=== PATIENT | female | born 1975 | race Caucasian/White ===

== ENCOUNTER 2017-04-09 13:35 | Observation (INO) | payer BC ==
[2017-04-09] MEDS ORDERED: Aspirin Low Dose CHEW TAB* 81 MG PO ONE (14:44)
[2017-04-09] MEDS ORDERED: Nitroglycerin TAB 0.4 MG* 0.4 MG TAB SL ONE (14:51)
--- NOTE | 2017-04-09 15:30 | RAD ---
HISTORY: Chest pain COMPARISONS: February 16, 2004 VIEWS:1: Single frontal portable view of the chest at 3:15 PM FINDINGS: LINES AND TUBES: None. CARDIOMEDIASTINAL SILHOUETTE: The cardiomediastinal silhouette is normal for portable technique. PLEURA: The costophrenic angles are sharp. No pleural abnormalities are noted. LUNG PARENCHYMA: The lungs are clear. ABDOMEN: The upper abdomen is clear. There is no subphrenic gas. BONES AND SOFT TISSUES: No bone or soft tissue abnormalities are noted. IMPRESSION: NO ACTIVE CARDIOPULMONARY DISEASE.
[2017-04-09 15:36] LABS: Hematocrit 41 % (35-47); Hemoglobin 13.4 g/dl (12.0-16.0); Mean Corpuscular HGB Conc 33 g/dl (31-36); Mean Corpuscular Hemoglobin 31 pg (27-31); Mean Corpuscular Volume 95 fL (80-97); Mean Platelet Volume 9 um3 (7.4-10.4); Red Cell Distribution Width 13 % (10.5-15); White Blood Count 6.2 10^3/ul (3.5-10.8)
[2017-04-09 15:51] LABS: ALT 12 U/L (7-52); AST 15 U/L (13-39); Albumin 3.9 g/dL (3.2-5.2); Alkaline Phosphatase 53 U/L (34-104); Anion Gap 4 mmol/L (2-11); BUN/Creatinine Ratio 9.7 (8-20); Blood Urea Nitrogen 7 mg/dL (6-24); CO2 Carbon Dioxide 26 mmol/L (22-32); Calcium 8.8 mg/dL (8.6-10.3); Chloride 108 mmol/L (101-111); Creatine Kinase 57 U/L (10-223); EGFR African American 114.2 (>60); EGFR Non-African American 88.8 (>60); Globulin 2.6 g/dL (2-4); Glucose 84 mg/dL (70-100); Potassium 3.3 mmol/L (3.5-5.0); Sodium 138 mmol/L (133-145); Total Protein 6.5 g/dL (6.4-8.9)
[2017-04-09] MEDS ORDERED: Morphine INJ* 2 MG/ML 1 ML SYRINGE IV PRN (15:51)
[2017-04-09] MEDS ORDERED: Acetaminophen TAB* 325 MG PO PRN (15:51)
[2017-04-09] MEDS ORDERED: PROCHLORPERAZINE INJ 5 MG/ML 2 ML VIAL IV PRN (15:51)
[2017-04-09 16:06] LABS: T4 7.84 mcg/mL (6.09-12.23)
[2017-04-09 16:07] LABS: TSH (Thyroid Stimulating Horm) 0.81 mcIU/mL (0.34-5.60)
[2017-04-09] MEDS ORDERED: Iohexol 350* (CONTRAST) 500 ML MDV IV ONE (16:08)
[2017-04-09] MEDS ORDERED: Potassium Chlor TAB* 20 MEQ TAB.ER PO ONE (16:29)
[2017-04-09] MEDS ORDERED: NS 0.9% 1000 ML* 1,000 ML BOLUS SCH (16:30)
--- NOTE | 2017-04-09 16:31 | RAD ---
Indication: Chest pain, pulmonary embolus. Contrast: Administered 60.9 ml of OMNIPAQUE 350 mgi/ml CTA of the chest was performed after IV contrast administration. Coronal and sagittal reconstructed images were obtained. The pulmonary arterial tree is well opacified. There are no filling defects present to suggest pulmonary embolus. The trachea and major bronchi appear patent. The lung jeter demonstrate no pleural fluid, nodules or masses. Heart is of normal size without evidence of pericardial effusion. No alveolar consolidation is noted. Visualized abdominal organs are unremarkable. IMPRESSION: No evidence of pulmonary embolus is noted.
[2017-04-09] MEDS ORDERED: Enoxaparin(*) 60 MG/0.6 ML SYR SUBCUT ONE (16:34)
[2017-04-09] MEDS ORDERED: VALACYCLOVIR 1 GM PO SCH (17:00)
[2017-04-09 17:44] LABS: Urine Bilirubin Negative (Negative); Urine Glucose Negative (Negative); Urine Nitrite Negative (Negative)
[2017-04-09] MEDS: NS 0.9% 1000 ML* 1,000 ML IV SCH (18:01)
--- NOTE | 2017-04-09 20:14 | HP ---
CC: Dr. Rose* HISTORY AND PHYSICAL: DATE OF ADMISSION: 04/09/17 TIME OF EVALUATION: 3:15 p.m. PRIMARY CARE PROVIDER: Dr. Rose. CHIEF COMPLAINT: Chest pain. HISTORY OF PRESENT ILLNESS: Ms. Encoh Patterson is a 42-year-old lady with a past medical history of ADHD, seasonal allergies, who presented to the emergency room with complaint of chest pain. She states she was in her usual state of health until a week ago, when she started having some shortness of breath and chest heaviness when going upstairs. She works at [employer] and she usually goes up 4 flights of stairs with no problem, but last week, she started to have the above-described symptoms. Last night, she had a very busy day and she went to bed around 11 p.m. and she had sudden onset of left-sided chest pain that she describes as sharp that also has the sensation of "elephant sitting on her chest." She states the episode was brief and she stated the pain lasted 10 to 15 seconds and resolved by itself and she was able to sleep. Today, she came to work and she had this episode again, not related to exertion, but she felt "the pain took my breath away" and she decided to come to the emergency room for further evaluation. She denies fever, chills, cough, or any other complaints. She states that she is going through a very stressful moment in her personal life. She traveled with her kids to [place] for the April; the trip is [address] Although she was not complaining of leg pain, she did have some left calf tenderness when she was examined by the emergency room provider. PAST MEDICAL HISTORY: 1. ADHD. 2. Seasonal allergies. ALLERGIES: With OXYCODONE, she experienced itching. FAMILY HISTORY: Her father has a history of CAD that started in his 40s, he is status post stent. Her mother has diabetes. Her grandmother was a smoker and has a history of lung and breast cancer. Her uncle of possible PE. SOCIAL HISTORY: She denies tobacco or drug use. She states that she drinks 1 to 2 glasses of wine a month. 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 REVIEW OF SYSTEMS: A 14-point review of systems was performed and all the pertinent negative and positive findings are in the HPI. PHYSICAL EXAMINATION GENERAL: The patient is a young lady, lying in the ER stretcher, not in acute distress. VITAL SIGNS: Temperature 99.6, heart rate is 91, respiratory rate is 19, oxygen saturation 100% on room air, blood pressure is 129/86. HEENT: Pupils are equal. Moist mucous membranes. CHEST: Breath sounds present bilaterally with no added sounds. CVS: Normal S1, S2. Regular rate and rhythm. ABDOMEN: Soft. Bowel sounds are present. EXTREMITIES: There is no pitting edema and there is mild tenderness in the left calf. NEURO: She is alert, awake, and oriented x3. Able to move all 4 extremities. Mood is anxious. DIAGNOSTIC STUDIES/LAB DATA: CBC showed a WBC of 6.2, hemoglobin of 13.4, hematocrit of 41, platelets of 265 with 61% neutrophils. INR is 0.87, D-dimer is less than 230. Chemistry showed sodium 138, potassium 3.3, chloride of 108, bicarb of 26, BUN of 7, creatinine of 0.72, glucose of 84, calcium of 8.8, magnesium of 2.0. LFTs showed a total bilirubin of 0.3, AST of 15, ALT of 12. Troponin is 0. HCG is less than 0.6. TSH is 0.81. Chest x-ray showed no active cardiopulmonary disease. EKG showed sinus tachycardia at 109 beats per minute with no ST or T changes. ASSESSMENT AND PLAN: Ms. Enoch Patterson is a 42-year-old lady with a past medical history of attention deficit hyperactivity disorder, seasonal allergies that presented to the emergency room with complaints of 1 week of exertional dyspnea and 2 episodes of chest pain starting last night. 1. Chest pain: Rule out pulmonary embolism, rule out acute coronary syndrome. The patient is not a smoker, does not take control pills, but she had a recent trip to [place] and she did have some left calf tenderness and her pain is stabbing in nature. Even though her D-dimer was negative, I believe she should be ruled out for pulmonary embolism and deep venous thrombosis with a CTA of the chest and lower extremity Doppler. If that is ruled out, I believe the next step would be a cardiac workup including serial troponins and exercise Myoview stress test. If other organic causes are ruled out, anxiety secondary to the problem she is facing in her personal life may be playing a role on her symptoms, but we do need to rule out organic causes first. Her EKG showed sinus tachycardia and this can be secondary to her Adderall. At the time of admission, the patient is chest pain free, but she will have pain medication available as needed and she will be continued on an aspirin for now. We are also going to check lipid profile. The patient's Wells' score for pulmonary embolism is 7.5 (physical findings suggestive of DVT, no alternative diagnosis better to explain the illness and tachycardia with pulse greater than 100), so this puts her at high probability, so she is going to receive 1 dose of Lovenox in the emergency room and then we are going to follow her CTA and lower extremity Doppler result. 2. Attention deficit hyperactivity disorder: We will continue Adderall. 3. DVT prophylaxis: The patient has a score of 1 on the DVT Prophylaxis Risk Assessment Guide. We are going to encourage ambulation and she will receive 1 dose of Lovenox until we have ruled out pulmonary embolism and DVT. 4. Code status: Full. TIME SPENT: Approximately 55 minutes was spent with the patient interview, medical records review, physical examination to complete the admission, more than half of this time was spent [id number] with the patient in coordination of care. [id number]/[facility] #: [id number] TRISH
--- NOTE | 2017-04-09 21:32 | RAD ---
Indication: Left leg pain. Duplex Doppler sonography of the deep venous system of both lower extremities was performed. Bilaterally the common femoral veins, proximal greater saphenous veins, proximal deep femoral veins, femoral veins, popliteal veins, posterior tibial veins and peroneal veins appear patent and compressible. IMPRESSION: NO EVIDENCE OF DEEP VENOUS THROMBOSIS OF EITHER LOWER EXTREMITY IS PRESENT.
[2017-04-09] MEDS ORDERED: Heparin VIAL(*) 5000 UNITS/ML VIAL (FIVE THOUSAND) SUBCUT SCH (22:00)
--- NOTE | 2017-04-09 23:06 | ED ---
Alma Rosa Eden Seung-Jae, scribed for Merlyn Vergara MD on 04/09/17 at 1608 . HPI Chest Pain - HPI Summary HPI Summary: A 42 yo F pt c/o chest pain.The pain onset was from last night 23:00 when she felt fatigued and went to bed. Later at lunch today Pt had a stabbing burning pain of intensity 3/10, with some dyspnea. Pt also notes that she has had more fatigue and some SOB when going upstairs for the past week or so. Pt notes that there was a sensation of "elephant on her chest" and the pain was aggravated with deep breaths. Other symptoms include fleeting headache, numb and "pinching " sensation in left hand and left calf tenderness on palpation. Pt has a FMHx of aneurysm, diabetes, and Pt usually takes tylenol, omeprazole, and Adderall. She is former smoker. - History of Current Complaint Chief Complaint: EDChestPainROMI Time Seen by Provider: 04/09/17 14:28 Hx Obtained From: Patient Onset/Duration: Started Days Ago - last night, Atraumatic, Resolved Time of Onset: 23:00 Timing: Intermittent Initial Severity: Moderate Current Severity: Mild Pain Intensity: 3 Pain Scale Used: 0-10 Numeric Chest Pain Location: Mid Sternal Chest Pain Radiates: Yes Chest Pain Radiates To:: Arm Character: Burning, Pressure/Squeezing - "elephant on chest", Sharp/Stabbing Aggravating Factor(s): Deep Breaths Alleviating Factor(s): Nothing Associated Signs and Symptoms: Positive: Headaches, Numbness - L hand, Weakness , Shortness of Breath, Calf Pain/Swelling - on palpation, had not noted it prior - Risk Factors Pulmonary Embolism Risk Factors: Recent Travel - Allergy/Home Medications Allergies/Adverse Reactions: Allergies Allergy/AdvReac Type Severity Reaction Status Date / Time Oxycodone Allergy Itching Verified 04/09/17 13:47 [From Oxycodone W/Acetaminophen] Home Medications: Home Medications Multiple Vitamins W/ Minerals [Multivitamin Adult] 2 tab.chew PO QAM 04/09/17 [ History Confirmed 04/09/17] PMH/Surg Hx/FS Hx/Imm Hx Previously Healthy: No - ADHD Endocrine/Hematology History: Denies: Hx Diabetes Cardiovascular History: Denies: Hx Hypertension, Hx Pacemaker/ICD Respiratory History: Reports: Hx Asthma Sensory History: Denies: Hx Hearing Aid Psychiatric History: Denies: Hx Eating Disorder, Hx Panic Disorder, Hx of Violent Episodes Against Others - Surgical History Surgery Procedure, Year, and Place: x2 Infectious Disease History: No Infectious Disease History: Denies: Traveled Outside the [place] in Last 30 Days - Family History Known Family History: Positive: Cardiac Disease, Diabetes, Other - brain aneurysm, cancer - Social History Occupation: Employed Full-time Lives: With Family Alcohol Use: Occasionally Hx Substance Use: No Substance Use Type: Reports: None Hx Tobacco Use: Yes Smoking Status (MU): Former Smoker Do You Chew or Dip Tobacco: No Have You Chewed or Dipped Tobacco in the LAST YEAR: No Have You Smoked in the Last Year: No Review of Systems Constitutional: Negative Positive: Chest Pain Positive: Shortness Of Breath Gastrointestinal: Negative Positive: Other - left calf tenderness on palpation Skin: Negative Positive: Headache - Fleeting , Numbness - L hand Psychological: Normal All Other Systems Reviewed And Are Negative: Yes Physical Exam Triage Information Reviewed: Yes Vital Signs On Initial Exam: Initial Vitals Temp Pulse Resp BP Pulse Ox 99.6 F 102 17 138/91 98 04/09/17 13:41 04/09/17 13:41 04/09/17 13:41 04/09/17 13:41 04/09/17 13:41 Vital Signs Reviewed: Yes Appearance: Positive: No Pain Distress, Well-Nourished, Ill-Appearing Skin: Positive: Warm, Skin Color Reflects Adequate Perfusion Head/Face: Positive: Normal Head/Face Inspection Eyes: Positive: Conjunctiva Clear ENT: Positive: Normal ENT inspection. Negative: Muffled/hoarse voice Neck: Positive: Supple, Nontender Respiratory/Lung Sounds: Positive: Clear to Auscultation, Breath Sounds Present Cardiovascular: Positive: RRR, Pulses are Symmetrical in both Upper and Lower Extremities. Negative: Murmur, Leg Edema Left, Leg Edema Right Abdomen Description: Positive: Nontender, Soft. Negative: Distended, Guarding, McBurney's Point Tenderness, Peritoneal Signs, Pulsatile Mass Bowel Sounds: Positive: Present Musculoskeletal: Positive: Strength/ROM Intact, Other - left calf tenderness on palpation. Negative: Edema Left, Edema Right Neurological: Positive: Sensory/Motor Intact, Alert, Oriented to Person Place, Time. Negative: Facial Droop, Focal Deficit @, Slurred Speech Psychiatric: Positive: Normal Diagnostics - Vital Signs Vital Signs Temp Pulse Resp BP Pulse Ox 04/09/17 13:45 99.6 F 102 17 138/91 100 04/09/17 13:41 99.6 F 102 17 138/91 98 - Laboratory Lab Results: Lab Results 04/09/17 04/09/17 04/09/17 Range/Units 15:15 15:15 15:15 WBC 6.2 (3.5-10.8) 10^3/ul RBC 4.30 (4.0-5.4) 10^6/ul Hgb 13.4 (12.0-16.0) g/dl Hct 41 (35-47) % MCV 95 (80-97) fL MCH 31 (27-31) pg MCHC 33 (31-36) g/dl RDW 13 (10.5-15) % Plt Count 265 (150-450) 10^3/ul MPV 9 (7.4-10.4) um3 Neut % (Auto) 61.6 (38-83) % Lymph % (Auto) 29.5 (25-47) % Wilcox % (Auto) 7.1 (1-9) % Eos % (Auto) 0.7 (0-6) % Baso % (Auto) 1.1 (0-2) % Absolute Neuts (auto) 3.8 (1.5-7.7) 10^3/ul Absolute Lymphs (auto) 1.8 (1.0-4.8) 10^3/ul Absolute Monos (auto) 0.4 (0-0.8) 10^3/ul Absolute Eos (auto) 0 (0-0.6) 10^3/ul Absolute Basos (auto) 0.1 (0-0.2) 10^3/ul Absolute Nucleated RBC 0.01 10^3/ul Nucleated RBC % 0.1 INR (Anticoag Therapy) (0.89-1.11) APTT (26.0-36.3) seconds D-Dimer, Quantitative (Less Than 230) ng/mL Sodium 138 (133-145) mmol/L Potassium 3.3 L (3.5-5.0) mmol/L Chloride 108 (101-111) mmol/L Carbon Dioxide 26 (22-32) mmol/L Anion Gap 4 (2-11) mmol/L BUN 7 (6-24) mg/dL Creatinine 0.72 (0.51-0.95) mg/dL Est GFR ( Amer) 114.2 (>60) Est GFR (Non-Af Amer) 88.8 (>60) BUN/Creatinine Ratio 9.7 (8-20) Glucose 84 (70-100) mg/dL Lactic Acid 0.8 (0.5-2.0) mmol/L Calcium 8.8 (8.6-10.3) mg/dL Magnesium 2.0 (1.9-2.7) mg/dL Total Bilirubin 0.30 (0.2-1.0) mg/dL AST 15 (13-39) U/L ALT 12 (7-52) U/L Alkaline Phosphatase 53 (34-104) U/L Total Creatine Kinase 57 (10-223) U/L CK-MB (CK-2) 1.6 (0.6-6.3) ng/mL Troponin I 0.00 (<0.04) ng/mL Total Protein 6.5 (6.4-8.9) g/dL Albumin 3.9 (3.2-5.2) g/dL Globulin 2.6 (2-4) g/dL Albumin/Globulin Ratio 1.5 (1-3) TSH 0.81 (0.34-5.60) mcIU/mL Thyroxine (T4) 7.84 (6.09-12.23) mcg/mL Beta HCG, Quant < 0.60 mIU/mL 04/09/17 Range/Units 15:15 WBC (3.5-10.8) 10^3/ul RBC (4.0-5.4) 10^6/ul Hgb (12.0-16.0) g/dl Hct (35-47) % MCV (80-97) fL MCH (27-31) pg MCHC (31-36) g/dl RDW (10.5-15) % Plt Count (150-450) 10^3/ul MPV (7.4-10.4) um3 Neut % (Auto) (38-83) % Lymph % (Auto) (25-47) % Wilcox % (Auto) (1-9) % Eos % (Auto) (0-6) % Baso % (Auto) (0-2) % Absolute Neuts (auto) (1.5-7.7) 10^3/ul Absolute Lymphs (auto) (1.0-4.8) 10^3/ul Absolute Monos (auto) (0-0.8) 10^3/ul Absolute Eos (auto) (0-0.6) 10^3/ul Absolute Basos (auto) (0-0.2) 10^3/ul Absolute Nucleated RBC 10^3/ul Nucleated RBC % INR (Anticoag Therapy) 0.87 L (0.89-1.11) APTT 32.5 (26.0-36.3) seconds D-Dimer, Quantitative < 230 (Less Than 230) ng/mL Sodium (133-145) mmol/L Potassium (3.5-5.0) mmol/L Chloride (101-111) mmol/L Carbon Dioxide (22-32) mmol/L Anion Gap (2-11) mmol/L BUN (6-24) mg/dL Creatinine (0.51-0.95) mg/dL Est GFR ( Amer) (>60) Est GFR (Non-Af Amer) (>60) BUN/Creatinine Ratio (8-20) Glucose (70-100) mg/dL Lactic Acid (0.5-2.0) mmol/L Calcium (8.6-10.3) mg/dL Magnesium (1.9-2.7) mg/dL Total Bilirubin (0.2-1.0) mg/dL AST (13-39) U/L ALT (7-52) U/L Alkaline Phosphatase (34-104) U/L Total Creatine Kinase (10-223) U/L CK-MB (CK-2) (0.6-6.3) ng/mL Troponin I (<0.04) ng/mL Total Protein (6.4-8.9) g/dL Albumin (3.2-5.2) g/dL Globulin (2-4) g/dL Albumin/Globulin Ratio (1-3) TSH (0.34-5.60) mcIU/mL Thyroxine (T4) (6.09-12.23) mcg/mL Beta HCG, Quant mIU/mL Result Diagrams: 04/09/17 15:15 04/09/17 15:15 Lab Statement: Any lab studies that have been ordered have been reviewed, and results considered in the medical decision making process. - Radiology Chest XR Xray Interpretation: No Acute Changes - Impression: No Acute Cardiopulmonary Disease Radiology Interpretation Completed By: Radiologist - EKG 1 Cardiac Rate: Tachycardia - 109bpm EKG Rhythm: Sinus Tachycardia EKG Interpretation: Red at 1354, nml AV,IV conduction, nml axis, nml QTC, EKG Comparison: Other - no prior to compare Re-Evaluation - Re-Evaluation 1 Re-Evaluation Time: 16:26 Change: Unchanged Comment: Discussing results with Pt. Chest Pain Course/Dx - Course Course Of Treatment: Pt is a 42 yo F presenting with intermittent CP pain onset last night at 23:00, and again at lunch today. Described as stabbing/burning pain of intensity 3/10, she describes it feeling like "an elephant is on her chest." Associated sx: dyspnea, IBARRA since resolved, L hand numbness, L calf tenderness. Former smoker. CXR is nml. EKG is sinus tachy. Trop is 0.00. Consulted with Dr. Trevizo, hospitalist. Will admit for observation. - Chest Pain Differential Diagnosis/HQI/PQRI: Acute NH, ACS, GI Disease, Pulmonary Embolism - Diagnoses Provider Diagnoses: Chest pain - Provider Notifications Discussed Care Of Patient With: Renay Trevizo - Hospitalist Instructed by Provider To: Admit As Observation Discharge - Discharge Plan Condition: Stable Disposition: ADMITTED TO [facility] The documentation as recorded by the Alma Rosa muñoz Seung-Jae accurately reflects the service I personally performed and the decisions made by va, Merlyn Vergara MD.
[2017-04-10] MEDS ORDERED: Amphetamine/Dextroamph ER(NF) 30 MG CAP.ER PO SCH (00:30)
[2017-04-10] MEDS: NS 0.9% 1000 ML* 1,000 ML IV SCH (04:12)
[2017-04-10 06:20] LABS: HDL Cholesterol 41.4 mg/dL
--- NOTE | 2017-04-10 08:26 | PN ---
Subjective - Subjective Reason for Note: Discharge Note History: Contingent DISCHARGE SUMMARY I reviewed Lexi Kendall's presentation with the patient and Dr. Tom's admitting history and physical. She has had 2 weeks of increase dyspnea on exertion in retrospect. 2 days ago she had a sudden onset of chest pain 810 whilst gardening. Yesterday, she had a second episode after waking up 4 flights of stairs to work. Overnight she has had 5 brief episodes. The pain is central chest and is sharp/burning in quality. It has radiated on one occasion to her left shoulder, on another occasion to her right lower chest. On one occasion when she stood up she felt clammy. The majority of these episodes are short in duration. There are no exacerbating factors/relieving factors. She has not changed her diet and takes omeprazole for GERD - her GERD symptoms are different. Risk factors: Father had his first MN at 42 years. No other classic risk factors Stress: She is going through a divorce and is under a great deal of stress. Active Problems: Active Problems Adjustment disorder (Acute) F43.20 Atypical chest pain (Acute) R07.89 ADHD (attention deficit hyperactivity disorder) (Chronic) Depressive disorder (Chronic 07/09/14) F32.9 Herpes simplex (Chronic) Seasonal affective disorder (Chronic) F39 Current Medications: Current Medications Acetaminophen (Tylenol Tab*) 650 mg PO Q6H PRN PRN Reason: pain/fever Amphetamine/Dextroamphetamine (Adderal Xr (Nf)) 30 mg PO 0030 [facility] Last Admin: 04/10/17 00:31 Dose: 30 mg Aspirin (Aspirin Ec Low Dose*) 81 mg PO DAILY [facility] Last Admin: 04/10/17 07:26 Dose: 81 mg Cetirizine HCl (Zyrtec*) 10 mg PO DAILY [facility] PRN Reason: Protocol Last Admin: 04/10/17 07:26 Dose: 10 mg Sodium Chloride (Ns 0.9% 1000 Ml*) 1,000 mls @ 100 mls/hr IV PER RATE [facility] Last Admin: 04/10/17 04:12 Dose: 100 mls/hr Sodium Chloride (Ns 0.9% 1000 Ml*) 1,000 mls @ 0 mls/hr BOLUS .BOLUS DOSE [facility] PRN Reason: Wide Open Last Admin: 04/09/17 16:40 Dose: 999 mls/hr Morphine Sulfate (Morphine Inj (Syringe)*) 2 mg IV Q4H PRN PRN Reason: SEVERE PAIN Multivitamins/Minerals (Theragran/Minerals Tab*) 2 tab PO QAM [facility] Last Admin: 04/10/17 07:26 Dose: 2 tab Prochlorperazine Edisylate (Compazine Inj*) 5 mg IV Q6H PRN PRN Reason: NAUSEA/VOMITING Valacyclovir HCl (Valtrex 1 Gm(*)) 1 gm PO WEEKLY [facility] PRN Reason: Protocol - Review of Systems Constitutional Symptoms: Yes: Fatigue, No: Fever Pulmonary: Negative: Cough, Sputum, Respiratory Distress, Shortness of Breath Cardiology: Positive: Chest Pain Negative: Shortness of Breath, Swelling of Ankles Gastroenterology: Negative: Abdominal Pain, Nausea, Vomiting, Difficulty Swallowing, Constipation, Diarrhea, Change in Bowel Habits Genital - Urinary: Negative: Dysuria, Hematuria Neurology: Positive: Headache - mild Home Medications: Home Medications Medication Instructions Recorded Confirmed Type Amphetamine MIXED SALTS TAB* 1 - 2 tab PO SEE INSTRUCTIONS 07/08/14 04/09/17 History [Adderall TAB*] Amphetamine-Dextroamphetamine 1 cap PO DAILY 07/08/14 04/09/17 History [Adderall Xr] Cetirizine* [ZyrTEC*] 10 mg PO DAILY 07/08/14 04/09/17 History Valacyclovir HCl [Valtrex] 1 gm PO WEEKLY 07/08/14 04/09/17 History Multiple Vitamins W/ Minerals 2 tab.chew PO QAM 04/09/17 04/09/17 History [Multivitamin Adult] Allergies: Allergies Allergy/AdvReac Type Severity Reaction Status Date / Time Oxycodone Allergy Itching Verified 04/09/17 13:47 [From Oxycodone W/Acetaminophen] Objective - Vital Signs Vital Signs: Vital Signs 04/09/17 04/09/17 04/09/17 16:00 16:57 17:25 Temperature 97.8 F Pulse Rate 90 81 Respiratory 19 18 Rate Blood Pressure 130/30 (mmHg) O2 Sat by Pulse 100 100 97 Oximetry 04/09/17 04/09/17 04/09/17 17:28 19:39 23:39 Temperature 97.8 F 97.7 F 97.9 F Pulse Rate 81 89 83 Respiratory 18 20 16 Rate Blood Pressure 130/83 124/75 122/77 (mmHg) O2 Sat by Pulse 97 100 100 Oximetry 04/10/17 04/10/17 03:58 07:12 Temperature 98.4 F 97.3 F Pulse Rate 76 79 Respiratory 15 14 Rate Blood Pressure 113/69 109/63 (mmHg) O2 Sat by Pulse 100 100 Oximetry - Intake and Output Intake and Output: Intake & Output 04/07/17 04/08/17 04/09/17 04/10/17 11:59 11:59 11:59 11:59 Intake Total 1240 Balance 1240 Weight 137 lb 12.8 oz Intake: IV Fluids 1000 Oral 240 ADLs: Meal Record Start: 04/09/17 17: 11 Freq: DAILY@0900,1400,1800 Status: Active Document 04/09/17 18:00 [id number] (Rec: 04/09/17 18:55 [id number]) Intake and Output Start: 04/09/17 17: 11 Freq: DAILY@0600,1400,2200 Status: Active Document 04/09/17 22:00 [id number] (Rec: 04/09/17 22:20 [id number]) - Physical Exam General: No Cyanosis, No Anemia, No Jaundice, No Clubbing Skin: Normal: Rash Endocrine: No Central Obesity Lungs and Chest: Yes: Chest Expansion Full, Chest Expansion Symetrica, Percussion Note Resonant, Vessicular Breath Sounds. No: Crackles, Wheezes, Respiratory Distress Heart Rate and Rhythm: Regular JVP: Not Elevated [place] Beat: Non Displaced Additional Cardiovascular: Yes: Normal Heart Sounds. No: Heart Murmur, Carotid Bruits, Pedal Edema Abdominal Exam: Yes: Soft, Bowel Sounds Present. No: Distention, Abdominal Mass , Hepatomegaly, Abdominal Tenderness, Guarding, Rebound Tenderness - Extremities Cranial Nerves II-XII Intact: Yes Limbs: Normal Power, Normal Tone - Neuro Orientation: A/O x3 Speech: Normal Results - Results Lab Results: Laboratory Results - last 24 hr 04/09/17 04/09/17 04/09/17 17:15 18:32 21:58 Troponin I 0.00 0.00 Triglycerides Cholesterol LDL Cholesterol HDL Cholesterol Urine Color Straw Urine Appearance Clear Urine pH 7.0 Ur Specific [place] 1.024 Urine Protein Negative Urine Ketones Negative Urine Blood Negative Urine Nitrate Negative Urine Bilirubin Negative Urine Urobilinogen Negative Ur Leukocyte Esterase Negative Urine Glucose Negative 04/10/17 05:44 Troponin I Triglycerides 56 Cholesterol 111 LDL Cholesterol 58 HDL Cholesterol 41.4 Urine Color Urine Appearance Urine pH Ur Specific [place] Urine Protein Urine Ketones Urine Blood Urine Nitrate Urine Bilirubin Urine Urobilinogen Ur Leukocyte Esterase Urine Glucose Radiology Results: Patient Name: LEXI MCCURDY Medical Record#: [id number] Ordering Physician: Renay Reid MD Acct.#: [id number] : 1975 Age: 42 Sex: F Location: EMERGENCY DEPARTMENT Exam Date: 04/09/17 1544 ADM Status: REG ER Order Information: CTA CHEST Accession Number: [id number] CPT: 32909 Indication: Chest pain, pulmonary embolus. Contrast: Administered 60.9 ml of OMNIPAQUE 350 mgi/ml CTA of the chest was performed after IV contrast administration. Coronal and sagittal reconstructed images were obtained. The pulmonary arterial tree is well opacified. There are no filling defects present to suggest pulmonary embolus. The trachea and major bronchi appear patent. The lung jeter demonstrate no pleural fluid, nodules or masses. Heart is of normal size without evidence of pericardial effusion. No alveolar consolidation is noted. Visualized abdominal organs are unremarkable. IMPRESSION: No evidence of pulmonary embolus is noted. <Electronically signed by Yanelis Faria MD in OV> 04/09/178 Dictated By: Yanelis Faria MD Dictated Date/Time: 04/09/17 1628 Transcribed Date/Time: 04/09/17 1626 Copy to: CC:Yuriy Rose MD; Renay Reid MD; Merlyn Vergara MD Imaging - [facility] Imaging - [facility] Imaging [facility] [address] [address] ph [phone]) ph ([phone]) ph ([phone]) Patient Name: LEXI MCCURDY Medical Record#: [id number] Ordering Physician: Renay Reid MD Acct.#: [id number] : 1975 Age: 42 Sex: F Location: [address] [place] [address] MEDICAL/TELEMETRY Exam Date: 04/09/171545 ADM Status: ADM Elizabeth Order Information: VL LOWER EXT VEINS BILATERAL Accession Number: [id number] CPT: 80873 Indication: Left leg pain. Duplex Doppler sonography of the deep venous system of both lower extremities was performed. Bilaterally the common femoral veins, proximal greater saphenous veins, proximal deep femoral veins, femoral veins, popliteal veins, posterior tibial veins and peroneal veins appear patent and compressible. IMPRESSION: NO EVIDENCE OF DEEP VENOUS THROMBOSIS OF EITHER LOWER EXTREMITY IS PRESENT. <Electronically signed by Yanelis Faria MD in OV> 04/09/172127 Dictated By: Yanelis Faria MD Dictated Date/Time: 04/09/172127 Transcribed Date/Time: 04/09/172127 Copy to: CC:Yuriy Rose MD; Renay Reid MD Imaging - [facility] Imaging - [facility] [address] [address] ph [phone]) ph ([phone]) ph ([phone]) EKG Report: EKG rate Sinus tachycardia 108 NM 126 QTc 444 QRS 92 QRS axis 84 - no ST/T wave changes Assessment - Problem List Assessment: Patient Problems Adjustment disorder (Acute) Atypical chest pain (Acute) ADHD (attention deficit hyperactivity disorder) (Chronic) Depressive disorder (Chronic 07/09/14) Herpes simplex (Chronic) Seasonal affective disorder (Chronic) Plan: Atypical chest pain (Acute) She has had numerous episodes shortlived central chest pain. She has 1 risk factor - father had his first MN at 42. She is otherwise healthy and fit. We will stratify her risk with a stress test. If this is negative I will discharge her home. Other possible causes: Pericarditis, Takotsubo cardiomyopathy, esophageal reflux with esophagitis. Adjustment disorder (Acute) She is going through a v. stressful divorce - this may be the emotional precipitant of her chest pain. ADHD (attention deficit hyperactivity disorder) (Chronic) secondary diagnosis Depressive disorder (Chronic 07/09/14) secondary diagnosis Herpes simplex (Chronic) secondary diagnosis Seasonal affective disorder (Chronic)secondary diagnosis I discussed the above with the patient. She understands the nature of this risk stratification. She will follow as an outpatient should the stress test be negative, if it is positive, I will obtain a cardiology consultation.
[2017-04-10] MEDS ORDERED: Multivitamins/Minerals TAB PO SCH (09:00)
[2017-04-10] MEDS ORDERED: Aspirin EC Low Dose* 81 MG TAB.EC PO SCH (09:00)
[2017-04-10] MEDS ORDERED: Cetirizine* 10 MG TAB PO SCH (09:00)
--- NOTE | 2017-04-10 11:40 | RAD ---
Edited for charges. INDICATION: Chest pain. COMPARISON: There are no prior studies available for comparison. Technique: A single day myocardial perfusion stress study was performed. Initially a resting study was performed. The patient was given an intravenous injection of 10.6 mCi of technetium 99m tetrofosmin and and the heart was imaged in multiple projections. The patient returned later in the day and under the direction of Dr. Lanier, the patient was exercised to a peak heart rate of 175 beats per minute which was 98% of the maximum predicted heart rate. Subsequently the patient was given intravenous injection of 25.6 mCi of technetium 99m tetrofosmin and the heart was imaged in multiple projections. Images were reconstructed in the axial, sagittal and coronal planes and in a 3- D format. FINDINGS: There appears to be normal wall motion and myocardial thickening. The left ventricular ejection fraction was calculated to be 73. Review of the images demonstrates normal distribution of radiopharmaceutical. IMPRESSION: NO EVIDENCE FOR INFARCT OR ISCHEMIA. ASSESSMENT: Low risk. Based on imaging criteria from ACC/AHA 2002 Guideline Update for the Management of Patients With Chronic Stable Angina Table 23. Noninvasive Risk Stratification. MTDD
[2017-04-10 11:53] VITALS: BP 104/69
[2017-04-11] MEDS ORDERED: Amphetamine/Dextroamph ER(NF) 10 MG CAP.ER PO SCH (00:30)
== END 2017-04-10 15:00 | disposition home or self-care (01) ==
LOC: ED 13:35 → MEDTELE 15:42
PROVIDERS: ADMIT Internal Medicine; ATTEND Internal Medicine
DX: R07.9 Chest pain, unspecified (principal); F90.9 Attention-deficit hyperactivity disorder, unspecified type; R06.02 Shortness of breath; R00.0 Tachycardia, unspecified; Z87.891 Personal history of nicotine dependence; Z32.02 Encounter for pregnancy test, result negative
CPT/HCPCS: 36415; 71010; 71275; 78452; 80053; 80061; 81003; 82550; 82553; 83605; 83735; 84436; 84443; 84484; 84702; 85025; 85379; 85610; 85730; 93005; 93017; 93970; 96360; 96361; 96372; 99284; A9270-GY; A9502; G0378; J1650; Q9967

== ENCOUNTER 2018-03-29 22:57 | Emergency (ER) | payer BC, OTHER ==
[2018-03-29] MEDS ORDERED: oxyCODONE/Acetamin 5/325 MG* TAB PO ONE (23:23)
[2018-03-29] MEDS ORDERED: Ibuprofen TAB* 800 MG PO ONE (23:23)
[2018-03-29] MEDS ORDERED: HYDROcodone/ACETAMIN 5-325 MG* 1 TAB PO ONE (23:31)
[2018-03-30 00:09] VITALS: BP 139/78
--- NOTE | 2018-03-30 00:09 | ED ---
Enedina Eden Emily, scribed for Dilan Herrera MD on 03/29/18 at 2326 . Adult Trauma - HPI Summary HPI Summary: This patient is a 43 year old F presenting to [facility] accompanied by friend with a chief complaint of back pain and L wrist pain status post fall that occurred at 2200. Pt states that she was walking her dog, and tripped. The patient rates the pain 6/10 in severity. Symptoms aggravated by nothing. Symptoms alleviated by nothing. - History of Current Complaint Chief Complaint: EDBackInjuryPain Stated Complaint: BACK AND LT WRIST INJURY Time Seen by Provider: 03/29/18 23:17 Hx Obtained From: Patient ?: No Mechanism of Injury: Fall Onset/Duration: Started Hours Ago, Still Present Onset of Pain: Immediate, Post Accident Onset Severity: Moderate Current Severity: Moderate Pain Intensity: 6 Pain Scale Used: 0-10 Numeric Location: Back, Extremities Aggravating Factor(s): Nothing Alleviating Factor(s): Nothing - Allergy/Home Medications Allergies/Adverse Reactions: Allergies Allergy/AdvReac Type Severity Reaction Status Date / Time oxycodone AdvReac Intermediate Itching Verified 03/29/18 23:55 PMH/Surg Hx/FS Hx/Imm Hx Previously Healthy: No Endocrine/Hematology History: Denies: Hx Diabetes, Hx Anemia Cardiovascular History: Reports: Hx Angina Denies: Hx Coronary Artery Disease, Hx Hypercholesterolemia, Hx Hypertension , Hx Myocardial Infarction, Hx Pacemaker/ICD, Hx Valvular Heart Disease Respiratory History: Reports: Hx Asthma GI History: Denies: Hx Jaundice Sensory History: Denies: Hx Contacts or Glasses, Hx Hearing Aid Opthamlomology History: Denies: Hx Contacts or Glasses Neurological History: Reports: Hx Headaches - mild Psychiatric History: Denies: Hx Eating Disorder, Hx Panic Disorder, Hx of Violent Episodes Against Others - Surgical History Surgery Procedure, Year, and Place: x2 Infectious Disease History: No Infectious Disease History: Denies: Traveled Outside the [place] in Last 30 Days - Family History Known Family History: Positive: Cardiac Disease, Diabetes, Other - brain aneurysm, cancer - Social History Occupation: Employed Full-time Lives: Alone Alcohol Use: Occasionally Hx Substance Use: No Substance Use Type: Reports: None Hx Tobacco Use: Yes Smoking Status (MU): Former Smoker Have You Smoked in the Last Year: No Review of Systems Negative: Fever Positive: Other - Positive back pain and L wrist pain All Other Systems Reviewed And Are Negative: Yes Physical Exam - Summary Physical Exam Summary: VITAL SIGNS: Reviewed. GENERAL: Patient is a well-developed and nourished female who is lying comfortable in the stretcher. Patient is not in any acute respiratory distress. HEAD AND FACE: No signs of trauma. No ecchymosis, hematomas or skull depressions. No sinus tenderness. EYES: PERRLA, EOMI x 2, No injected conjunctiva, no nystagmus. EARS: Hearing grossly intact. Ear canals and tympanic membranes are within normal limits. MOUTH: Oropharynx within normal limits. NECK: Supple, trachea is midline, no adenopathy, no JVD, no carotid bruit, no c- spine tenderness, neck with full ROM. CHEST: Symmetric, no tenderness at palpation LUNGS: Clear to auscultation bilaterally. No wheezing or crackles. CVS: Regular rate and rhythm, S1 and S2 present, no murmurs or gallops appreciated. ABDOMEN: Soft, non-tender. No signs of distention. No rebound no guarding, and no masses palpated. Bowel sounds are normal. EXTREMITIES: FROM in all major joints, no edema, no cyanosis or clubbing. Mild tenderness over the left wrist. No deformity. Good ROM. MUSCULOSKELETAL: Tenderness over the lower back. NEURO: Alert and oriented x 3. No acute neurological deficits. Speech is normal and follows commands. SKIN: Dry and warm Triage Information Reviewed: Yes Vital Signs On Initial Exam: Initial Vitals Temp Pulse Resp BP Pulse Ox 98.3 F 79 18 150/89 100 03/29/18 23:05 03/29/18 23:05 03/29/18 23:05 03/29/18 23:05 03/29/18 23:05 Vital Signs Reviewed: Yes Diagnostics - Vital Signs Vital Signs Temp Pulse Resp BP Pulse Ox 03/29/18 23:05 98.3 F 79 18 150/89 100 - Laboratory Lab Statement: Any lab studies that have been ordered have been reviewed, and results considered in the medical decision making process. - Radiology Lumbar Spine XR Radiology Interpretation Completed By: ED Physician - Lumbar spine XR reveals, per ED physician, no fracture. Wrist XR Radiology Interpretation Completed By: ED Physician - Wrist XR reveals, per ED physician, no fracture. Re-Evaluation - Re-Evaluation First Eval Re-Evaluation Time: 00:00 Change: Unchanged Comment: Discussed results with pt Adult Trauma Course/Dx - Course Course Of Treatment: This patient is a 43 year old F presenting to [facility] accompanied by friend with a chief complaint of back pain and L wrist pain status post fall that occurred at 2200. Wrist XR reveals, per ED physician, no fracture. Lumbar spine XR reveals, per ED physician, no fracture. In the ED course the patient was given Motrin, Percocet, and [place]. Patient will be discharged with prescription for Motrin and follow up from PCP. The patient is agreeable with this plan. - Diagnoses Provider Diagnoses: Low back pain Discharge - Sign-Out/Discharge Documenting (check all that apply): Discharge/Admit/Transfer - Discharge home - Discharge Plan Condition: Stable Disposition: HOME Prescriptions: Ibuprofen TAB* [Motrin TAB* 600 MG] 600 mg PO Q6H PRN #30 tab PRN Reason: Pain Patient Education Materials: Back Pain (ED) Referrals: Yuriy Rose MD [Primary Care Provider] - 3 Days Additional Instructions: RETURN TO THE EMERGENCY DEPARTMENT FOR NEW OR WORSENING SYMPTOMS The documentation as recorded by the Enedina muñoz Emily accurately reflects the service I personally performed and the decisions made by , Dilan Herrera MD.
--- NOTE | 2018-03-30 07:37 | RAD ---
INDICATION: Fall. Wrist pain COMPARISON: None TECHNIQUE: AP, lateral, and oblique views were obtained. FINDINGS: The bony structures, joint spaces, and soft tissues are normal for age. IMPRESSION: NEGATIVE EXAMINATION.
--- NOTE | 2018-03-30 07:37 | RAD ---
INDICATION: Fall. Back pain COMPARISON: None TECHNIQUE: Routine PA, lateral, and oblique imaging was performed . FINDINGS: Bones: There are no acute bony findings. There are arthritic changes at L5-S1. Alignment: There is a minor scoliotic deformity Disc spaces: Advanced narrowing L5-S1. The remaining disc spaces are well-maintained Soft tissues: There are no soft tissue abnormalities. IMPRESSION: DEGENERATIVE DISC DISEASE L5-S1. NO ACUTE FINDINGS.
== END 2018-03-30 00:08 | disposition home or self-care (01) ==
LOC: ED 22:57
DX: M54.5 Low back pain (principal); M25.532 Pain in left wrist; Z87.891 Personal history of nicotine dependence
CPT/HCPCS: 72110; 99282; A9270-GY

== ENCOUNTER → 2018-08-03 14:23 | Day surgery (SDC) | payer BC, OTHER ==
[~2018-08-03 14:23] MED LIST: Lidocaine 1%* 5 ML VIAL ONE
[2018-08-03 14:41] VITALS: BP 142/91
[2018-08-03 15:30] LABS: Body Fluid Source Cerebral Spinal
== END | disposition home or self-care (01) ==
LOC: OR 14:23
PROVIDERS: ATTEND Anesthesiology
DX: B00.3 Herpesviral meningitis (principal); M47.892 Other spondylosis, cervical region; G83.4 Cauda equina syndrome; R51 Headache
CPT/HCPCS: 36415; 62270; 82784; 82945; 84157; 87070; 87205; 87529; 89051

== ENCOUNTER → 2018-08-31 19:09 | Emergency (ER) | payer BC, OTHER ==
[~2018-08-31 19:09] MED LIST changes: +Gadoteridol* (CONTRAST) 279.3 MG/ML 10 ML IV ONE; -Lidocaine 1%* 5 ML VIAL ONE
--- NOTE | 2018-08-31 21:19 | ED ---
Back Pain - HPI Summary HPI Summary: A 43 y/o female accompanied by a friend presents to the ED c/o intermittent back pain. Currently, the patient is experiencing no numbness now, however, she does feel some tingling in her vaginal and buttock area. Additionally c/o numbness and tingling in the vaginal area and arms. As per triage, "Patient sent by neurosurgery after follow up appt. Patient had surgery on c5-c6 last week but now has numbness in vaginal area and loss of bladder control". According to the patient, she recently had a surgery (08/19/18) and went home. She noted that she was fine for a day or two. She stated that yesterday she then started experiencing slight back pain. However, she also experienced numbness in her vaginal and buttock area. She also noted that when she went upstairs, she felt warm and noticed that she was leaking. She did not know that she was urinating. She spoke to her MD who recommended her coming to the ER. No PMHx of back surgery. - History of Current Complaint Chief Complaint: EDBackInjBinu Stated Complaint: NUMBNESS IN BACK AND LEGS Time Seen by Provider: 08/31/18 20:56 Hx Obtained From: Patient Onset/Duration: Sudden Onset, Lasting Days, Still Present Onset/Duration: Started Days Ago, Still Present Timing: Intermittent Severity Initially: Moderate Severity Currently: Moderate Pain Intensity: 5 Pain Scale Used: 0-10 Numeric Aggravating Symptom(s): Nothing Alleviating Symptom(s): Nothing Associated Signs And Symptoms: Positive: Numbness, Tingling, Other - BACK PAIN - Allergies/Home Medications Allergies/Adverse Reactions: Allergies Allergy/AdvReac Type Severity Reaction Status Date / Time oxycodone AdvReac Intermediate Itching Verified 08/19/18 09:59 PMH/Surg Hx/FS Hx/Imm Hx Endocrine/Hematology History: Denies: Hx Diabetes, Hx Sickle Cell Disease, Hx Anemia Cardiovascular History: Reports: Hx Angina Denies: Hx Coronary Artery Disease, Hx Hypercholesterolemia, Hx Hypertension , Hx Myocardial Infarction, Hx Pacemaker/ICD, Hx Valvular Heart Disease, Other Cardiovascular Problems/Disorders Respiratory History: Reports: Hx Asthma Denies: Other Respiratory Problems/Disorders GI History: Denies: Hx Jaundice, Other GI Disorders History: Reports: Other Problems/Disorders - Frequent urination Musculoskeletal History: Reports: Other Musculoskeletal History - Degenerative disc disease/Scoliosis Denies: Hx Arthritis, Hx Bursitis, Hx Tendonitis Sensory History: Denies: Hx Contacts or Glasses, Hx Hearing Aid Opthamlomology History: Denies: Hx Contacts or Glasses Neurological History: Reports: Hx Headaches - mild Psychiatric History: Reports: Hx Anxiety Denies: Hx Eating Disorder, Hx Panic Disorder, Hx of Violent Episodes Against Others, Other Psychiatric Issues/Disorders - Surgical History Surgery Procedure, Year, and Place: x2 Hx Anesthesia Reactions: No Infectious Disease History: No Infectious Disease History: Denies: History Other Infectious Disease, Traveled Outside the [place] in Last 30 Days - Family History Known Family History: Positive: Cardiac Disease, Diabetes, Other - brain aneurysm, cancer - Social History Alcohol Use: Rare Alcohol Amount: 1-2 glasses per month Hx Substance Use: No Substance Use Type: Reports: None, Marijuana Substance Use Comment - Amount & Last Used: occasionally-only this week to sleep after grandmothers Hx Tobacco Use: No Smoking Status (MU): Former Smoker Type: Cigarettes Amount Used/How Often: 2 cigs per day for a few years Have You Smoked in the Last Year: No Review of Systems Negative: Fever Positive: discharge - Uncontrolled urination Positive: Other - POSITIVE: BACK PAIN Positive: Numbness - Vaginal and Buttock area All Other Systems Reviewed And Are Negative: Yes Physical Exam - Summary Physical Exam Summary: Appearance: Well-appearing, Well-nourished, lying in bed comfortably Skin: Warm, dry, no obvious rash Eyes: sclera anicteric, no conjunctival pallor ENT: mucous membranes moist, pharynx appears normal Neck: Supple, nontender Respiratory: Clear to auscultation, no signs of respiratory distress Cardiovascular: Normal S1, S2. No murmurs. Normal distal pulses in tibial and radial bilaterally. Abdomen: Soft, nontender, normal active bowel sounds present Musculoskeletal: Normal, Strength/ROM Intact. Weaknes in the dorsal flexsion at the base of toe. Neurological: A&Ox3, awake and alert, mentation is normal, speech is fluent and appropriate Psychiatric: affect is normal, does not appear anxious or depressed Rectal: Normal rectal tone. Triage Information Reviewed: Yes Vital Signs On Initial Exam: Initial Vitals Temp Pulse Resp BP Pulse Ox 98.4 F 91 20 122/90 98 11/27/18 19:22 08/31/18 19:22 08/31/18 19:22 08/31/18 19:22 08/31/18 19:22 Vital Signs Reviewed: Yes Diagnostics - Vital Signs Vital Signs Temp Pulse Resp BP Pulse Ox 08/31/18 19:22 98.4 F 91 20 122/90 98 - Laboratory Result Diagrams: 08/31/18 21:15 08/31/18 21:15 Lab Statement: Any lab studies that have been ordered have been reviewed, and results considered in the medical decision making process. - Additional Comments Diagnostic Additional Comments: LUMBAR MRI: Multilevel lumbar spondylopathy with L5-S1 disc protrusion and possible compression of the bilateral L5 and likely compression of the bilateral S1 nerve roots. ED PHYSICIAN REVIEWED THIS RADIOLOGY REPORT. Back Pain Course/Dx - Course Course Of Treatment: A 43 y/o female accompanied by a friend presents to the ED c/o intermittent back pain. Currently, the patient is experiencing no numbness now, however, she does feel some tingling in her vaginal and buttock area. Additionally c/o numbness and tingling in the vaginal area and arms. According to the patient, she recently had a surgery (08/19/18) and went home. She noted that she was fine for a day or two. She stated that yesterday she then started experiencing slight back pain. However, she also experienced numbness in her vaginal and buttock area. She also noted that when she went upstairs, she felt warm and noticed that she was leaking. She did not know that she was urinating. She spoke to her MD who recommended her coming to the ER. No PMHx of back surgery. Physical exam revealed a normal rectal tone. A Lumbar MRI revealed Multilevel lumbar spondylopathy with L5-S1 disc protrusion and possible compression of the bilateral L5 and likely compression of the bilateral S1 nerve roots. Blood work was done. In the ED course, the patient recieved Prohance. Patient will be discharged with a diagnosis of urinary incontinence. Patient is to follow up with PCP in 2-3 days. Patient is agreeable with this plan. - Diagnoses Provider Diagnoses: Urinary incontinence Discharge - Sign-Out/Discharge Documenting (check all that apply): Patient Departure - DISCHARGE - Discharge Plan Condition: Good Disposition: HOME Patient Education Materials: Urinary Incontinence (ED) Referrals: Radha Shoemaker MD [Medical Doctor] - Additional Instructions: Followup per Dr. Shoemaker' recommendations. - Billing Disposition and Condition Condition: GOOD Disposition: Home - Attestation Statements Document Initiated by Aydin: Yes Documenting Scribe: Elliott Viramontes Provider For Whom Aydin is Documenting (Include Credential): Clay Samuels MD [employer] Attestation: Elliott Eden, scribed for Clay Samuels MD on 09/01/18 at 0219. Scribe Documentation Reviewed: Yes Provider Attestation: The documentation as recorded by the Elliott muñoz accurately reflects the service I personally performed and the decisions made by me, Clay Samuels MD Status of Scribe Document: Viewed
[2018-08-31 21:26] LABS: ABS Basophils 0.1 10^3/ul (0-0.2); ABS Eosinophils 0.5 10^3/ul (0-0.6); ABS Lymphocytes 2.7 10^3/ul (1.0-4.8); ABS Monocytes 0.7 10^3/ul (0-0.8); ABS Nucleated RBC 0 10^3/ul; Eosinophil % 5.1 %; Hematocrit 42 % (35-47); Hemoglobin 14.1 g/dl (12.0-16.0); Lymphocyte % 26.8 %; Mean Corpuscular HGB Conc 33 g/dl (31-36); Mean Corpuscular Hemoglobin 31 pg (27-31); Mean Corpuscular Volume 92 fL (80-97); Mean Platelet Volume 7.3 fL (7.4-10.4); Nucleated Red Blood Cells % 0; Platelet Count 369 10^3/ul (150-450); Red Blood Count 4.61 10^6/ul (4.00-5.40); Red Cell Distribution Width 13 % (10.5-15)
[2018-08-31 21:42] LABS: EGFR Non-African American 96.1 (>60)
[2018-08-31 23:11] VITALS: BP 0/0
--- NOTE | 2018-09-01 05:35 | CONS ---
CONSULTATION REPORT: DATE OF CONSULT: 08/31/18 - EMERGENCY DEPT HISTORY OF PRESENT ILLNESS: The patient is a very pleasant 43-year-old female who was seen by me earlier today in the office. The patient is status post an anterior cervical diskectomy and fusion approximately 12 days ago for complaints of neck pain and cervical spondylotic myelopathy. The patient did extremely well after surgery. The patient had history of chronic back pain and was also followed by Dr. Velez who did an extensive workup including an LP for possible herpes simplex radiculitis or Sjogren's syndrome. The patient earlier today reported that she still has significant back pain and had 2 episodes of GI incontinence prior to her anterior cervical diskectomy and fusion and recent one episode of urinary incontinence approximately 1 week ago. For this reason, the patient was advised to come to the emergency and she was kindly evaluated by Dr. Patterson, who did rectal exam on her which was normal without loss of pain or sensation and had performed an MRI of the lumbar spine. The patient reports that she has done excellent from her cervical spine. She had no drainage from the wound. She has no fever. Her neck pain has completely resolved with some residual interscapular pain. She also reports that her upper extremity symptoms have completely resolved. She does have chronic back pain without significant radiation to the lower extremities. She does have weakness on the left lower extremity with especially the plantar flexion and dorsiflexion of her left foot especially when she is lying down as she reports. She ambulates at baseline with some mild difficulties and also denies any urinary or GI incontinence or loss of sensation at this point. She describes 2 episodes of GI incontinence prior to her surgery and one recent episode of urinary incontinence approximately 1 week ago. Furthermore, she reports that she will have occasional episodes of numbness in her vaginal area. The patient was seen in the emergency room and her significant other was at the bedside. PAST MEDICAL HISTORY: Negative. PAST SURGICAL HISTORY: 1. x2. 2. Anterior cervical diskectomy and fusion. ALLERGIES: OXYCODONE. FAMILY HISTORY: Cardiac disease, diabetes, brain aneurysm, cancer. SOCIAL HISTORY: Tobacco use negative. Alcohol 1 or 2 glasses per month, marijuana only this week to sleep after grandmother's as she reported in the emergency room. PHYSICAL EXAM: The patient is in no acute distress. She is awake, alert, oriented x3. Her pupils are equal and reactive. Cranial nerves II through XII are grossly intact. Motor 4 to 5/5 in all extremities with the exception of left foot plantar flexion and dorsiflexion in EHL, which is 4/5, possibly antalgic. The patient reports that when she is standing up, her strength is improving; but when she is lying down, she feels that occasionally her strength is worse. Sensory grossly intact to light touch. Deep tendon reflexes +1 bilaterally with trace in bilateral Achilles. No clonus, no Babinski. Ronquillo is negative. Straight leg test negative on the right side, positive at approximately 35 degrees on the left. No tenderness to palpation of the thoracic or lumbar spine. There is cervical wound that is soft, clean and dry, healing very well. The patient is on Daniels J collar. She has free range of motion as expected after her cervical procedure. Pedal pulses present bilaterally. DIAGNOSTIC STUDIES/LAB DATA: The patient had an MRI of the lumbar spine revealing degenerative disease at L5-S1 with leftward disk herniation as well as disk height loss and grade 1 spondylolisthesis with bilateral neuroforaminal stenosis. ASSESSMENT: The patient is a very pleasant 43-year-old female who is status post anterior cervical diskectomy and fusion approximately 10 days ago with chronic complaints of back pain and episodes of urinary and GI incontinence with MRI findings consistent with degenerative disk disease at L5-S1 and leftward disk herniation and grade 1 spondylolisthesis. PLAN: The patient at this point is doing quite well. She currently has no episodes of incontinence and her rectal exam was normal as performed by Dr. Patterson. Because of her clinical presentation as well as the MRI findings, the patient may be a candidate for surgical intervention in the form of left L5-S1 TLIF versus anterior lumbar body fusion. We discussed nonoperative and operative treatment options as well as different surgical approaches and the patient will be interested in TLIF approach for now. I think that this might provide immediate decompression of her stenosis and stabilization of the L5-S1. We will be happy to see the patient in 2 days in our office and schedule the above procedure and will be happy to obtain an MRI with thoracic spine to exclude any other etiologies of her symptoms. Also, the patient is followed by Dr. Velez and we would like to schedule the patient for a followup prior to scheduling any further surgical interventions. We also discussed about timing of potential surgical intervention and because of her recent cervical surgery and because of the lack of acute symptoms at this point, we would prefer to perform surgical procedure in a timely fashion. Full instruction given to the patient. The patient knows to call our office or come to emergency room if she develops any signs or symptoms of cauda equina or develops any worsening of her neurological condition or any new symptoms. Thank you for allowing us to participate in the care of this patient. Please do not hesitate to contact our office in case you have any further questions or concerns regarding the care of this patient. [id number]/[facility] #: [id number] MTDD
== END | disposition home or self-care (01) ==
LOC: ED 19:09
DX: R32 Unspecified urinary incontinence (principal); M54.9 Dorsalgia, unspecified; Z87.891 Personal history of nicotine dependence
CPT/HCPCS: 36415; 72158; 80048; 85025; 86140; 96374; 99282; A9579

== ENCOUNTER 2018-09-22 06:02 | Inpatient (IN) | payer BC, OTHER ==
[~2018-09-22 06:02] MED LIST changes: +Buffered Lidocaine 0.9% SYRIN* 5 ML/SYR SYRINGE INTRADERM ONE; +Famotidine IV* 10 MG/ML 2 ML (20 mg) IV ONE; -Gadoteridol* (CONTRAST) 279.3 MG/ML 10 ML IV ONE; +Lactated Ringers 1000 ML Bag* 1,000 ML IV SCH
--- OUTSIDE RECORDS SUMMARY | 2018-09-22 06:06 | XMS REPORT | Continuity of Care Document ---
:1975 External Reference #:[id number] Author Name Waleska Cooper Care Team Providers Name Role Phone Yuriy Rose MD Primary Care Physician Unavailable Payers Type Date Identification Numbers Payment Provider Subscriber Effective: Policy Number: MONISHA Angelique Elliott 2017 [id number] Deyanira PayID: [id number] [address] [address] [place] [address] Expires: 2017 PayID: [id number] BS Angelique Mcmillan [address] [address] [place] [address] Effective: 2016 Policy Number: [facility] Lexi Patterson [id number] Expires: 2018 Group Number: 50% [id number] PayID: [id number] [address] Advance Directives Description No Information Available Problems Date Description Provider Status Onset: 03/28/2015 Chronic meningitis Jayden Strauss M.D. Active Onset: 04/19/2015 Skin sensation disturbance Anastasia Dillon M.D. Active Onset: 04/19/2015 Memory impairment Anastasia Dillon M.D. 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 Onset: 06/23/2018 Cervical spondylosis Radha Shoemaker MD Active Onset: 06/23/2018 Cervical kyphosis Radha Shoemaker MD Active Family History Date Family Member(s) Problem(s) Comments General Diabetes General Heart Disease Mother Neck Surgery Social History Type Date Description Comments Sex Unknown Marital Status Lives With Daughter Occupation Currently Working Occupation mri managerstudent financial aid manager office Work Status Currently Working ETOH Use Occasionally consumes alcohol Tobacco Use Start: Unknown Patient has never smoked Recreational Drug Use Denies Drug Use Smoking Status Reviewed: 09/07/18 Patient has never smoked Exercise Type/Frequency Exercises regularly Allergies, Adverse Reactions, Alerts Date Description Reaction Status Severity Comments 03/28/2015 Percocet itchy Active Medications Medication Date Status Form Strength Qnty SIG Indications Ordering Provider Zolpidem 04/19/ Active Tablets 2.5mg 30tabs 1 by mouth Anastasia Garza Tartrate 2014 tablet at [place], bedtime as M.D. needed Valtrex 04/19/ Active Tablets 500mg 30tabs 1 by mouth Anastasia Garza 2014 every day Fab Dillon Triamcinolone / Active Ointment 0.5% apply to Unknown Acetonide 0000 affected area(s) sparingly two times a day as needed Amphetamine-Dex / Active Caps ER 30mg 1 qd Unknown troamphet ER 0000 24HR Amphetamine-Dex / Active Tablets 10mg 1-2 in Unknown troamphetamine 0000 afternoon Omeprazole / Active Capsules 20mg 1 by mouth Unknown 0000 DR every day Cetirizine HCL / Active Tablets 10mg 1 by mouth Unknown 0000 every day Alprazolam / Active Tablets 0.5mg take 1 Unknown 0000 tablet by mouth 2 times daily as needed Sulfamethoxazol / Active Tablets 400-80mg Take 1/2 Unknown e-Trimethoprim 0000 Tablet By Mouth Every 12 Hours Baclofen / Active Tablets 10mg take 1/2 Unknown 0000 tab every 8 hours as needed for muscle spasm Multi For Her / Active Capsules one every Unknown 0000 day Hydrocodone / Active Tablets 5-325mg 1 by mouth Unknown Bitartrate/Acet 0000 three times aminophen a day as needed Gabapentin / Hx Capsules 400mg prn Unknown 0000 Wellbutrin SR / Hx Tablets ER 150mg 1 by mouth Unknown 0000 12HR once a day Immunizations Description No Information Available Vital Signs Date Vital Result Comment 09/07/2018 4:21pm Height 62 inches 5'2" Weight 147.00 lb Heart Rate 80 /min BP Systolic 102 mmHg BP Diastolic 74 mmHg BMI (Body Mass Index) 26.9 kg/m2 08/31/2018 3:33pm Height 62 inches 5'2" Weight 149.00 lb BP Systolic Sitting 128 mmHg BP Diastolic Sitting 76 mmHg Body Temperature 98.0 F Pain Level 5 BMI (Body Mass Index) 27.2 kg/m2 07/30/2018 8:36am Height 63 inches 5'3" Weight 149.25 lb Heart Rate 80 /min BP Systolic 122 mmHg BP Diastolic 84 mmHg BMI (Body Mass Index) 26.4 kg/m2 07/28/2018 8:11am Height 63 inches 5'3" Heart Rate 84 /min BP Systolic Sitting 110 mmHg BP Diastolic Sitting 66 mmHg Respiratory Rate 16 /min Body Temperature 97.5 F 06/23/2018 8:49am Height 63 inches 5'3" Weight 140.00 lb Heart Rate 60 /min BP Systolic 118 mmHg BP Diastolic 84 mmHg Pain Level 4 BMI (Body Mass Index) 24.8 kg/m2 04/19/2015 10:07am Height 63 inches 5'3" Weight 134.00 lb Heart Rate 80 /min BP Systolic Sitting 110 mmHg BP Diastolic Sitting 78 mmHg Respiratory Rate 14 /min BMI (Body Mass Index) 23.7 kg/m2 03/28/2015 2:06pm Height 63 inches 5'3" Weight 136.00 lb Heart Rate 72 /min BP Systolic Sitting 122 mmHg BP Diastolic Sitting 70 mmHg Pain Level 0 BMI (Body Mass Index) 24.1 kg/m2 Results Test Date Facility Test Result H/L Range Note Urinalysis Profile 08/13/2018 [facility] Urine Color Yellow [address] [place] [address] [phone] Urine Appearance Cloudy Urine Specific [place] 1.017 N 1.010-1.030 Urine pH 7.0 N 5-9 Urine Urobilinogen Negative Negative Urine Ketones Negative Negative Urine Protein Negative Negative Urine Leukocytes Negative Negative Urine Blood Negative Negative Urine Nitrite Negative Negative Urine Bilirubin Negative Negative Urine Glucose Negative Negative CBC No Diff 08/13/2018 [facility] White Blood 5.4 10^3/uL N 3.5-10.[address] [place] [address] [phone] Red Blood Count 4.48 10^6/uL N 4.00-5.40 Hemoglobin 14.0 g/dL N 12.0-16.0 Hematocrit 42 % N 35-47 Mean Corpuscular Volume 93 fL N 80-97 Mean Corpuscular Hemoglobin 31 pg N 27-31 Mean Corpuscular HGB Conc 34 g/dL N 31-36 Red Cell Distribution Width 14 % N 10.5-15 Platelet Count 281 10^3/uL N 150-450 Mean Platelet Volume 8.3 fL N 7.4-10.4 Inr/Protime 08/13/2018 [facility] Inr 0.87 N 0.77-1.[address] [place] [address] [phone] Laboratory test 08/13/2018 [facility] Partial 32.0 seconds N 26.0-36.[address] [place] [address] PTT [phone] Type & Screen 08/13/2018 [facility] Patient O Positive [address] [place] [address] [phone] Antibody Screen NEGATIVE Basic Metabolic Panel 08/13/2018 [facility] Sodium 138 mmol/L N 135-[address] [place] [address] [phone] Potassium 4.3 mmol/L N 3.5-5.0 Chloride 104 mmol/L N 101-111 Co2 Carbon Dioxide 29 mmol/L N 22-32 Anion Gap 5 mmol/L N 2-11 Glucose 92 mg/dL N 70-100 Blood Urea Nitrogen 12 mg/dL N 6-24 Creatinine 0.85 mg/dL N 0.51-0.95 BUN/Creatinine Ratio 14.1 N 8-20 Calcium 9.2 mg/dL N 8.6-10.3 Egfr Non- 73.0 >60 Egfr 88.3 >60 1 Herpes Simplex 08/03/2018 [facility] HSV 1 PCR, Negative Negative Virus PCR CSF [address] [place] [address] [phone] HSV 2 PCR, CSF Negative Negative 2 CSF Cell Count 08/03/2018 [facility] Body Fluid Cerebral Spinal [address] [place] [address] [phone] Body Fluid Appearance Clear Body Fluid Color Colorless CSF Tube # 4 Body Fluid Volume 2.2 mL Body Fluid WBC 0 /mcL Body Fluid RBC 0 /mcL Body Fluid Neutrophils 13 % Body Fluid Band 6 % Body Fluid Lymph 75 % Body Fluid [place] 6 % Body Fluid Total Cells Counted 32 Fluid Reviewed By MD (SEE NOTE) 3 Laboratory test 08/03/2018 [facility] CSF Protein 24 mg/dL N 15-[address] [place] [address] [phone] CSF Glucose 55 mg/dL N 40-70 CSF Culture & 08/03/2018 [facility] CSF Culture Gram SEE RESULT [address] [place] [address] [phone] CSF Immunoglobulin 08/03/2018 [facility] CSF Immunoglobulin 0.54 <=0. G (Igg) DRIVE G Index 85 [place] [address] [phone] CSF Igg 1.3 mg/dL <=8.1 5 CSF Albumin 9.7 mg/dL <=27.0 6 CSF IgG/Albumin Ratio 0.13 <=0.21 CSF Immunoglobulin G Synthesis 0.00 mg/24h <=12 Immunoglobulin G 911 mg/dL 767 - 1590 Albumin 3860 mg/dL 7 Serum IgG/Albumin Ratio 0.24 <=0.40 8 Laboratory test 07/30/2018 [facility] Angiotensin 34 U/L 8 - [address] [place] [address] [phone] CRP High Sensitivity < 0.20 mg/L <2.00 Immunoglobulin A (Iga) 250 mg/dL 61 - 356 10 Ssa/SSB Abs Igg 07/30/2018 [facility] SS-A/Ro Antibody <0.[address] [place] [address] [phone] SS-B/La Antibody <0.2 U 12 Xray 07/15/2018 [facility] MRI Brain W/O <pending> [address] [place] [address] [phone] SP Cerv Comp/Obl, Flex, Ext <pending> Order 04/14/2018 [facility] MMR Injection <pending> [address] [place] [address] [phone] Varicella Zoster 04/08/2018 [facility] Varicella-Zoster Positive [address] [place] [address] [phone] Varicella IgG Antibody Index 1.6 14 Rubeola Measles 04/08/2018 [facility] Rubeola (Measles) Negative 15 Igg AB [address] [facility] [place] [address] [phone] Rubeola IgG Antibody Index 0.7 16 Mumps Igg 04/08/2018 [facility] Mumps Virus IgG Antibody Positive [address] [place] [address] [phone] Mumps IgG Antibody Index 3.8 18 Laboratory test 04/08/2018 [facility] Rubella Screen Immune Immune finding [address] [place] [address] [phone] Laboratory test 04/19/2015 [facility] C Reactive < 1.00 mg/L N < 5.[address] [place] [address] [phone] TSH (Thyroid Stim Horm) 1.18 ?IU/mL N 0.34-5.60 Free T4 (Free Thyroxine) 0.82 ng/mL N 0.61-1.12 Folic Acid (Folate) > 20.00 ng/mL N >3.99 Vitamin B12 363 pg/mL N 180-914 20 Dionna (Antinuclear Antibodies) Negative N Negative Laboratory test 03/28/2015 [facility] Lyme Disease Negative N Negative 21 finding [address] [facility] [place] [address] [phone] 1 Because ethnic data is not always readily available, this report includes an eGFR for both -Americans and non- Americans. The National Kidney Disease Education Program (NKDEP) does not endorse the use of the MDRD equation for patients that are not between the ages of 18 and 70, are , have extremes of body size, muscle mass, or nutritional status, or are non- or non-. According to the National Kidney Foundation, irrespective of diagnosis, the stage of the disease is based on the level of kidney function: Stage Description GFR(mL/min/1.73 m(2)) 1 Kidney damage with normal or decreased GFR 90 2 Kidney damage with mild decrease in GFR 60-89 3 Moderate decrease in GFR 30-59 4 Severe decrease in GFR 15-29 5 Kidney failure <15 (or dialysis) 2 Test Performed by: [address] [address] 3 No acute inflammation or evidence of malignancy identified. No microorganisms seen. Reviewed by Dr. Guzman 4 SEE RESULT BELOW Name: LEXI MCCURDY : [address]: Ashley Reynaga III, MD Acct: [id number] Unit: [id number] AGE: 43 Location: OR Re08/03/18 SEX: F Status: REG SDC SPEC: [id number] RODNEY: 08/03/[address]: Fabrice Velez MD REQ: [id number] RECD: 08/03/18 STATUS: OPAL CLEMENTE DR: Yuriy Reynaga III, MD _ SOURCE: CSF SPDESC: ORDERED: CSF Cult/GS Procedure Result Reported Site CSF Gram Stain Final 08/03/18- 1559 ML 1+ Epithelial Cells No Neutrophils Observed No Organisms Seen Preparation By Cytospin Smear CSF Culture Final 08/07/18- 0839 ML No Growth Day 4 * - [facility] . END OF REPORT DEPARTMENT OF PATHOLOGY, [address] [place] [address] Gurmeet Guzman M.D. Director [facility] # [id number] 5 ADDITIONAL INFORMATION This test has been modified from the drapery hand's instructions. Its performance characteristics were determined by [facility] in a manner consistent with CLIA requirements. This test has not been cleared or approved by the U.S. Food and Drug Administration. 6 ADDITIONAL INFORMATION This test has been modified from the drapery hand's instructions. Its performance characteristics were determined by [facility] in a manner consistent with CLIA requirements. This test has not been cleared or approved by the U.S. Food and Drug Administration. 7 REFERENCE VALUE 3200 - 4800 8 Test Performed by: [facility] - [address] [address] 9 Test Performed by: [facility] - [facility] [address] [place] [address] 10 Test Performed by: [facility] - [facility] [address] [place] [address] 11 REFERENCE VALUE <1.0 (Negative) 12 REFERENCE VALUE <1.0 (Negative) Test Performed by: [facility] - [place] [id number] 13 Results suggest response to immunization or prior exposure to the virus. REFERENCE VALUE Vaccinated: Positive (>=1.1 AI) Unvaccinated: Negative (<=0.8 AI) 14 Test Performed by: [facility] - [employer] [place] [address] 15 REFERENCE VALUE Vaccinated: Positive (>=1.1 AI) Unvaccinated: Negative (<=0.8 AI) 16 Test Performed by: [facility] - [facility] [place] [address] 17 Results suggest response to immunization or prior exposure to the virus. REFERENCE VALUE Vaccinated: Positive (>=1.1 AI) Unvaccinated: Negative (<=0.8 AI) 18 Test Performed by: [facility] [employer] [place] [address] 19 Acute inflammation: >10.00 20 Normal Range 180 to 914 Indeterminate Range 145 to 180 Deficient Range <145 21 Serologic response to B. burgdorferi infection is not detected, but cannot rule out early infection during which low or undetectable antibody levels to B. burgdorferi may be present. If clinically indicated, a new serum specimen should be submitted in 7-14 days. Test Performed by: [address] [address] Surgical Garment Inspector: Tremaine Nino II, M.D., Ph.D. Procedures Date Code Description Status 08/19/2018 90551 Insertion Interbody Biomechanical Device; Each Interspace Completed 08/19/2018 24806 Insertion Interbody Biomechanical Device; Each Interspace Completed 08/19/2018 10380 Anterior Instrumentation 2-3 Vertebral Segments Completed 08/19/2018 64677 Anterior Instrumentation 2-3 Vertebral Segments Completed 08/19/2018 78464 additional level cervical below C2 Completed 08/19/2018 76435 additional level cervical below C2 Completed 08/19/2018 82929 arthrodesis,anterior interbody incl disc space Completed prep,discectomy,de 08/19/2018 70302 arthrodesis,anterior interbody incl disc space Completed prep,discectomy,de 08/19/2018 37741 Autograft For Spine Surgery (Incls Harvesting The Graft) Completed 08/19/201816310 Allograft For Spine Surgery, Morselized Completed 08/06/2018 24829 Nerve Conduction 07-08 Studies Completed 08/06/2018 61920 Needle Electromyography Each Extremity W/Related Completed Paraspinal Areas 04/10/2017 93203 Treadmill Interp/Report Only Completed 04/10/2017 08883 Stress Test Supervsn W/Out I/R Completed Encounters Type Date Location Provider Dx Diagnosis Office Visit 07/30/2018 [facility] Fabrice Sampson M47.892 Other 8:15a Fab Velez spondylosis, cervical region R20.0 Anesthesia of skin R53.1 Weakness R29.2 Abnormal reflex Office Visit 07/28/2018 [facility] M47.892 Other 8:00a Services [facility] Clint Shoemaker MD spondylosis, cervical region M40.202 Unspecified kyphosis, cervical region M47.12 Other spondylosis with myelopathy, cervical region M54.5 Low back pain Office Visit 06/23/2018 [facility] M47.892 Other 8:30a [facility] Clint Shoemaker MD spondylosis, cervical region M40.202 Unspecified kyphosis, cervical region Office Visit 04/09/2017 9:28a [facility] Renay R07.2 [facility],kathy Trevizo M.D. Hospitalists Office Visit 02/23/2017 9:30a [facility] Danny Jesuslimzer, L21.8 Other seborrheic MD dermatitis D22.39 Melanocytic nevi of other parts of face D23.71 Oth benign neoplasm skin/ right lower limb, including hip D22.5 Melanocytic nevi of trunk L23.9 Allergic contact dermatitis, unspecified cause L70.0 Acne vulgaris Office Visit 04/19/2015 10:00a [facility] Anastasia MUyen 782.0 Skin Sensation [facility] Of Clint Dillon M.D. Disturbance 780.93 Memory Loss Office Visit 03/28/2015 2:00p Neurosurgery Jayden Pierce 322.2 Meningitis Services Of Clint Strauss M.D. Chronic 781.6 Meningismus Plan of Treatment 08/31/2018 - Radha Shoemaker MDZ48.89 Encounter for other specified surgical aftercareFollow up:Rv in 2-3 weeks. Please obtain XR of cervical spine at that time. Patient will go to the ED today. Please obtain MRI of lumbar spine if not be able to be done in ED today.M47.12 Other spondylosis with myelopathy, cervical regionNew Xrays:MRI Lumbar Spine W/Wo, Ordered: M54.5 Low back pain
[2018-09-22] MEDS ORDERED: Thrombin 5,000 UNITS* 1 APPLIC KIT - topical use - TOPICAL ONE (06:37)
[2018-09-22] MEDS ORDERED: Lidocaine 1% MPF wEPI 200,000* 30 ML SDV ONE (06:37)
[2018-09-22] MEDS ORDERED: Bacitracin IV* 50,000 UNITS INJ ONE (06:38)
[2018-09-22] MEDS ORDERED: Famotidine IV* 10 MG/ML 2 ML (20 mg) ONE (06:42)
[2018-09-22] MEDS ORDERED: ceFAZolin 2 GM PREMIX in ORs 2 GM/50 ML BAG IVPB ONE (06:42)
[2018-09-22] MEDS ORDERED: Phenylephrine INJ* 10 MG/ML 1 ML VIAL (10 MG) ONE (07:14)
[2018-09-22] MEDS ORDERED: Lidocaine 2% PF * 5 ML VIAL ONE (07:14)
[2018-09-22] MEDS ORDERED: Midazolam* 1 MG/ML 10 ML VIAL (10 MG) ONE (07:14)
[2018-09-22] MEDS ORDERED: Cisatracurium* 2 MG/ML MDV 5 ML ONE (07:14)
[2018-09-22] MEDS ORDERED: Ondansetron INJ* 2 MG/ML VIAL ONE (07:14)
[2018-09-22] MEDS ORDERED: Dexamethasone IV* 4 MG/ML 1 ML (4 MG) ONE (07:14)
[2018-09-22] MEDS ORDERED: Sodium Chloride 0.9%* 10 ML ONE (07:14)
[2018-09-22] MEDS ORDERED: fentaNYL* 50 MCG/ML 2 ML VIAL (100 MCG VIAL) ONE ×2 (07:14→10:22)
[2018-09-22] MEDS ORDERED: Propofol* 10 MG/ML 20 ML BTL ONE (07:14)
[2018-09-22] MEDS ORDERED: Remifentanil* 2 MG VIAL ONE (07:16)
[2018-09-22] MEDS ORDERED: Artificial Tear OPHTH.OINT* 3.5 GM ONE (07:16)
[2018-09-22] MEDS ORDERED: Propofol* 1,000 MG/100 ML BTL ONE (07:17)
[2018-09-22] MEDS ORDERED: Scopolamine 1.5 mg* PATCH ONE (07:42)
[2018-09-22] MEDS ORDERED: EPHEDrine (Pressors)* 50 MG/ML VIAL ONE (08:07)
[2018-09-22] MEDS ORDERED: HYDROmorphone INJ1* 1 MG/ML SYRINGE IV PRN (09:50)
[2018-09-22] MEDS ORDERED: fentaNYL* 50 MCG/ML 2 ML VIAL (100 MCG VIAL) IV PRN (09:50)
[2018-09-22] MEDS ORDERED: Ondansetron INJ* 2 MG/ML VIAL IV PRN (09:50)
[2018-09-22] MEDS ORDERED: DiMENhydriNATE IV* 50 MG/ML VIAL IV PUSH PRN (09:50)
[2018-09-22] MEDS ORDERED: Naloxone* 0.4 MG/ML 1 ML VIAL IV PRN (09:50)
[2018-09-22] MEDS ORDERED: Levalbuterol 0.63MG/3ML NEB* UNIT OF USE INH PRN (09:50)
[2018-09-22] MEDS ORDERED: Scopolamine 1.5 mg* PATCH TRANSDERM PRN (10:48)
[2018-09-22] MEDS ORDERED: HYDROmorphone INJ1* 1 MG/ML SYRINGE ONE (11:29)
[2018-09-22] MEDS ORDERED: Acetaminophen TAB* 325 MG PO PRN (12:27)
[2018-09-22] MEDS ORDERED: Magnesium Hydroxide LIQ* 30 ML UDC PO PRN (12:27)
[2018-09-22] MEDS ORDERED: HYDROcodone/ACETAMIN 5-325 MG* 1 TAB PO PRN ×2 (12:27)
[2018-09-22] MEDS ORDERED: Morphine VIAL* 4 MG/ML VIAL (1 ml vial) ONE (13:28)
[2018-09-22] MEDS ORDERED: diPHENhydraMINE PO* 25 MG PO PRN (16:09)
[2018-09-22] MEDS: Cyclobenzaprine TAB* 10 MG PO PRN (16:46)
[2018-09-22] MEDS: oxyCODONE TAB* 5 MG TAB PO PRN ×2 (18:03→22:22)
[2018-09-22] MEDS: Morphine VIAL* 4 MG/ML VIAL (1 ml vial) IV PRN (19:38)
[2018-09-23] MEDS: oxyCODONE TAB* 5 MG TAB PO PRN ×5 (03:13→22:28)
[2018-09-23] MEDS: Cyclobenzaprine TAB* 10 MG PO PRN ×2 (03:13→12:25)
[2018-09-23] MEDS: Morphine VIAL* 4 MG/ML VIAL (1 ml vial) IV PRN ×2 (04:48→19:43)
--- NOTE | 2018-09-23 10:08 | OP ---
OPERATIVE REPORT: DATE OF OPERATION: 09/22/18 DATE OF : 75 SURGEON: Radha Shoemaker MD ASSISTANTS: Yolanda Levi ANESTHESIA: General. PRE-OP DIAGNOSIS: Degenerative disk disease L5-S1. POST-OP DIAGNOSIS: Degenerative disk disease L5-S1. OPERATIVE PROCEDURE: Left L5-S1 MIS-TLIF with PEEK interbody cage, iliac crest bone graft through separate incision, DBX, plate and screws L5-S1 with intraoperative medication and intraoperative monitoring. ESTIMATED BLOOD LOSS: 52 cc. COMPLICATIONS: None. SUMMARY: The patient is a very pleasant 43-year-old female with complaints of back pain radiating to the left lower extremity with symptoms consistent with possible partial cauda equina with MRI findings consistent with degenerative disk disease at L5-S1 with significant stenosis and neuroforaminal stenosis. Of note, the patient had recent anterior cervical diskectomy and fusion for cervical spondylotic myelopathy. After failing conservative treatment modalities and after explaining expectation; limitations; possible complications of the procedure with complications including but not limited to bleeding, infection, risk of injury to the adjacent structures, paralysis, , need for additional procedure, anesthesia risk, stroke, blindness, cancer, instability, hardware failure, adjacent level disease, pseudoarthrosis, spinal fluid leak, anesthesia risk, the patient and her significant other were agreeable to proceed with surgery and informed consent was obtained. The patient understood that her condition may not improve and in fact may get worse after the surgery and that she may need to have additional procedures in the future. She also understood that the operative plan may be modified according to intraoperative findings and conditions and the case may be aborted or done in more than one stage. DESCRIPTION OF PROCEDURE: The patient was brought to the operating room, was placed under general anesthesia by the anesthesia team. She was carefully positioned prone on Harman table and all bony prominences were meticulously padded. Her skin was prepped and draped in a standard fashion. After appropriate surgical pause and patient identification, a small incision over the right iliac crest was performed with a #10 surgical blade after infiltrating the skin incision site with local anesthetic. The incision was carried down to the subcutaneous tissue and a Corex needle was used to harvest the iliac crest bone graft for the arthrodesis part of the procedure. Through the same incision, navigation star was secured in the iliac crest and intraoperative imaging was obtained with the O-arm. The patient's data was transferred to the navigation platform and under stereotactic navigation, the projection of the the pedicles of L5 and S1 were marked on the skin. The pedicles were cannulated and [employer] ATS pedicle screws were placed with 6.5 x 35 mm for the S1 and 6.5 x 40 mm for the L5. Then attention was brought to perform the TLIF. Over a series of navigated dilators, the METRx tubular retractor was 32 mm in diameter was inserted and secured in place. Over the left minda-lamina of L5 and the left L5-S1 facet, high speed drill and Kerrison punches were used to fashion a laminectomy and area of facetectomy. The ligamentum flavum was gently removed and the thecal sac and the S1 nerve root was readily exposed. After retracting the thecal sac medially, a standard diskectomy and preparation of disk space was performed after incising the annulus fibrosus with a #15 surgical blade and the diskectomy in preparation of the disk space was carried out with pituitary rongeurs, dilators and curettes. An Elevate PEEK interbody cage 7 x 28 mm was inserted after being filled with locally harvested bone graft during the laminectomy phase and iliac crest bone graft as well as DBX, part of the graft material was inserted to the disk space prior to insertion of the cage. The cage was then expanded. The METRx retractor was gently removed after confirmation of meticulous hemostasis, copious irrigation and meticulous inspection of the wound, while prior to removal, the thecal sac was found to be free of any pressure phenomenon. Two cobalt chrome rods were then inserted through the same stab wound incision and secured in place with screw head caps. Intraoperative OArm imaging confirmed excellent placement of all hardware. The wounds were then closed by layers with 0 intraoperative Vicryl sutures for the dorsal fascia and 2-0 inverted interrupted Vicryl sutures for the subcutaneous tissue. The skin was then covered with Dermabond at the end of the procedure. All counts were reported to be correct. The patient remained hemodynamically stable throughout the case. I was present and scrubbed for the entirety of the case. The patient was turned supine, was extubated, was transferred to Recovery in excellent condition. [id number]/[facility] #: [id number] API HEALTHCARERahul
--- NOTE | 2018-09-23 16:24 | PN ---
Progress Note - Progress Note Date of Service: 09/23/18 SOAP: Subjective: []No events ON. Patient tolerated procedure well yesterday. One episode of hypotension after returning from XR. Ambulates well since yesterday. Preop LLE pain and numbness resolved. Still incisional pain. Voids. No episodes of incontinence. Objective: []VSS, Afebrile. Wound s,c,d AAOx3, DYLAN, CN II-XII grossly intact. Motor 5/5 all extremities Sensory grossly intact to light touch Assessment: []43 yof POD#1 Left L5-S1 MIS TLIF Plan: []Monitor VS, Neurochecks Encourage ambulation. XR reveal good placement of hardware, good alignment of spine. Pain control. Will contact Dr Quinones. Near syncopal episode, will check orthostatic BP IM consult. DC planning, possible tomorrow. Nena Shoemaker MD
[2018-09-23 18:54] LABS: Urine Appearance Cloudy; Urine Bacteria 1+ (Absent); Urine Bilirubin Negative (Negative); Urine Blood Negative (Negative); Urine Color Yellow; Urine Glucose Negative (Negative); Urine Ketones Negative (Negative); Urine Nitrite Negative (Negative); Urine Protein Negative (Negative); Urine Red Blood Cell 1+(3-5/hpf) (Absent); Urine Specific Gravity 1.013 (1.010-1.030); Urine Urobilinogen Negative (Negative); Urine White Blood Cell Trace(0-5/hpf) (Absent)
[2018-09-23] MEDS ORDERED: Diazepam TAB(*) 5 MG PO PRN (20:00)
--- NOTE | 2018-09-23 20:20 | CONSULT ---
Consult Consult: INPATIENT PAIN CONSULTATION Lexi Patterson is a 43 year old female. She has a medical history of ADHD but is not on anything for it currently. She developed numbness in her hands in 2014. She saw Dr. Jayden Strauss and had an MRI of her cervical spine and was felt not to need surgery. She had some problems with unilateral weakness 2 years prior and had seen Dr. Dillon and had a workup including a normal MRI of her brain. In 2016 she began to have trouble tripping. She was having electric shock symptoms down her arm. She saw Dr. Garces and ahd a new MRI of her cervical spine. 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 [address] Velez for EMG studies which were read as normal. She had a new MRI of her brain and an LP. She had an ACDF of C5/6 and C6/7 on 08/19/18. She had better feelings in her hands post op. She then developed low back pain with urinary incontinence. She went to the ER. AN MRI of her lumbar and thoracic spine were done. She had DJD at L5/S1 and a leftward disc herniation with foraminal stenosis. She was admitted to [facility] [place] and underwent a left L5/ S1 TLIF with PEEK interbody cage, ICBG. She has had significant pain since the surgery. It is in the back and above the hip. PAST MEDICAL HISTORY: Eosinophilic Esophagitis, ADHD Allergies Allergy/AdvReac Type Severity Reaction Status Date / Time No Known Allergies Allergy Verified 09/22/18 20:17 Current Medications Acetaminophen (Tylenol Tab*) 650 mg PO Q4H PRN PRN Reason: PAIN Cyclobenzaprine HCl (Flexeril Tab*) 10 mg PO Q8H PRN PRN Reason: MUSCLE SPASMS Last Admin: 09/23/18 12:25 Dose: 10 mg Diazepam (Valium Tab(*)) 5 mg PO Q8H PRN PRN Reason: muscle spasms Diphenhydramine HCl (Benadryl Po*) 25 mg PO Q6H PRN PRN Reason: ITCHING Last Admin: 09/22/18 19:45 Dose: 25 mg Magnesium Hydroxide (Milk Of Magnesia Liq*) 30 ml PO DAILY PRN PRN Reason: CONSTIPATION Last Admin: 12/20/18 08:51 Dose: 30 ml Morphine Sulfate (Morphine Vial*) 1 mg IV Q2H PRN PRN Reason: PAIN Last Admin: 09/23/18 19:43 Dose: 1 mg Oxycodone HCl (Roxycodone Tab*) 10 mg PO Q4H PRN PRN Reason: PAIN Last Admin: 09/23/18 18:31 Dose: 10 mg Pharmacy Profile Note (Scopolamine Patch Remove*) 1 note PATCH OFF Q72H ONE Stop: 09/25/18 10:51 Scopolamine (Transderm-Scop 1.5 Mg Patch*) 1 patch TRANSDERM Q72H PRN PRN Reason: Nausea/Vomiting SOCIAL HISTORY: non smoker drinks several times a month. 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 Moves all 4 extremities ASSESSMENT: 1. Left L5/S1 TLIF with ICBG 2. Back Pain PLAN: I will start a long acting opioid. I will try Fentanyl, 25 mcg/hr. I will add bowel medications as her last BM was before surgery. I will follow and adjust meds as needed
--- NOTE | 2018-09-23 20:34 | CONS ---
CC: Dr. Shoemaker * CONSULTATION REPORT: DATE OF CONSULT: 09/23/18 TIME OF CONSULTATION: 6:00 p.m. REASON FOR CONSULT: Dizziness. CONSULTING SERVICE: Neurosurgery. HISTORY OF PRESENT ILLNESS: This is a 43-year-old lady with a history of ADHD and anxiety who presented to the hospital for an elective L5-S1 fusion, which was completed yesterday. Of note, she also had an anterior cervical diskectomy 1 month ago which was uncomplicated and she has healed well from. Neurosurgery called for a consultation due to dizziness that occurred earlier this morning. Lexi says that she was on the elevator today coming up from her x-ray in a wheelchair when she started getting hot, dizzy, and nauseous and when she got back to the room, she experienced dizziness and ringing in both ears, and she suddenly could not hear everyone talking, and when she got back into bed, all the symptoms resolved. This has never happened to her before. She has never experienced syncope. She has no heart disease or history of neurologic disease. She reports her pain has been terrible and the narcotic she has received has not been covering the pain. She has also been taking muscle relaxers and she has ordered for benzodiazepines, but she is not taking any of them. She does have history of ADHD and takes Adderall on a regular basis when she is working; however, she has not taken them for approximately 3 weeks and has had no symptoms from not taking them. PAST MEDICAL HISTORY: Degenerative disk disease, anxiety, ADHD, thyroid goiter. FAMILY HISTORY: Positive for heart disease and diabetes. SOCIAL HISTORY: She does not smoke. She drinks alcohol once a month. REVIEW OF SYSTEMS: She denies headaches, nausea, vomiting, dysuria, fevers, weakness. Remainder of 14-point review of systems is negative, except as per the HPI. HEALTHCARE PROXY: Healthcare proxy is her daughter, Marybeth, . PHYSICAL EXAM: Temperature 97.8, heart rate 87, respiratory rate 100% on room air, and blood pressure 100/58. Orthostatic vitals are as follows: Lying 101/ 58, heart rate 72; sitting 110/70, heart rate 83; and standing 99/59 and heart rate of 72. General: Alert, well-appearing female, in no distress. She is standing in her room eating dinner. She is walking around her room without any difficulty. HEENT: Her oral mucosa is moist. Her extraocular movements are intact. Her heart rate is regular. She has no murmurs. A compressive abdominal binder is on and I did not remove the dressing on her incision. Her incision on her neck is well healed. Her gait is normal. She is oriented x3. ASSESSMENT AND PLAN: This is a 43-year-old lady with history of anxiety and ADHD who was admitted for an L5-S1 fusion yesterday, has had difficult-to- control pain, and had an episode of dizziness and tinnitus this morning. 1. Dizziness and tinnitus. I suspect this is related to medication side effects and pain and would continue to monitor. I have a low suspicion for metabolic disease, cardiac disease or neurologic disease and she would be low risk for all of these. She does have history of UTI, so we will check UA as she may have some symptoms in the setting of narcotic and muscle relaxer use. She has history of thyroid goiter, so we will check a TSH, though again, this would be an unusual presentation for thyroid disease. We can monitor her on telemetry overnight, though again an arrhythmia would be surprising in her case. 2. Postoperative day #1 L5-S1 fusion. Continue pain control as per neurosurgery and PT. 3. Anxiety. She takes Xanax at home, but is on Valium here. This is probably not pertinent because she is not taking any. 4. Attention-deficit hyperactivity disorder. Continue the Adderall when she goes home. No need to resume it here and I agree with that. 5. Disposition. We will sign off. Please do not hesitate to call us with any questions or concerns. We will review the labs in the telemetry in the morning. [id number]/CPS #: [id number] TRISH
[2018-09-23] MEDS ORDERED: fentaNYL PATCH 25 MCG/HR TRANSDERM SCH (21:00)
[2018-09-23] MEDS ORDERED: Senna TAB PO SCH (21:00)
[2018-09-23] MEDS: Docusate CAP* 100 MG PO SCH (22:27)
[2018-09-24] MEDS: Morphine VIAL* 4 MG/ML VIAL (1 ml vial) IV PRN (00:35)
[2018-09-24] MEDS: Cyclobenzaprine TAB* 10 MG PO PRN ×2 (02:59→10:27)
[2018-09-24] MEDS: oxyCODONE TAB* 5 MG TAB PO PRN ×3 (04:35→15:29)
[2018-09-24] MEDS ORDERED: fentaNYL Patch Check Q Shift 1 NOTE SCH (07:00)
[2018-09-24] MEDS: Docusate CAP* 100 MG PO SCH (10:27)
[2018-09-24 12:27] VITALS: BP 102/51
--- NOTE | 2018-09-24 14:32 | PN ---
Progress Note - Progress Note Date of Service: 09/24/18 Note: INPATIENT PAIN-PROGRESS She seems to have done better overnight with the Fentanyl Patch. She has not had a BM yet. NEurosurgery will be discharging her later Current Medications Acetaminophen (Tylenol Tab*) 650 mg PO Q4H PRN PRN Reason: PAIN Cyclobenzaprine HCl (Flexeril Tab*) 10 mg PO Q8H PRN PRN Reason: MUSCLE SPASMS Last Admin: 09/24/18 10:27 Dose: 10 mg Diazepam (Valium Tab(*)) 5 mg PO Q8H PRN PRN Reason: muscle spasms Last Admin: 09/24/18 00:36 Dose: 5 mg Diphenhydramine HCl (Benadryl Po*) 25 mg PO Q6H PRN PRN Reason: ITCHING Last Admin: 09/22/18 19:45 Dose: 25 mg Docusate Sodium (Colace Cap*) 100 mg PO BID [facility] Last Admin: 09/24/18 10:27 Dose: 100 mg Fentanyl (Duragesic Patch 25 Mcg/Hr*) 25 mcg TRANSDERM Q72H [facility] Last Admin: 09/23/18 22:29 Dose: 25 mcg Magnesium Hydroxide (Milk Of Magnesia Liq*) 30 ml PO DAILY PRN PRN Reason: CONSTIPATION Last Admin: 09/23/18 08:51 Dose: 30 ml Morphine Sulfate (Morphine Vial*) 1 mg IV Q2H PRN PRN Reason: PAIN Last Admin: 09/24/18 00:35 Dose: 1 mg Oxycodone HCl (Roxycodone Tab*) 10 mg PO Q4H PRN PRN Reason: PAIN Last Admin: 09/24/18 10:28 Dose: 10 mg Pharmacy Profile Note (Scopolamine Patch Remove*) 1 note PATCH OFF Q72H ONE Stop: 09/25/18 10:51 Pharmacy Profile Note (Fentanyl Patch Check Q Shift) 1 note N/A 0700,1900 [facility] Last Admin: 09/24/18 07:14 Dose: 1 note Scopolamine (Transderm-Scop 1.5 Mg Patch*) 1 patch TRANSDERM Q72H PRN PRN Reason: Nausea/Vomiting Senna (Senokot Tab*) 2 tab PO BEDTIME [facility] Last Admin: 09/23/18 22:35 Dose: 2 tab EXAM: LUNGS: Clear HEART: Reg rhythm ABDOMEN: Distended NEUROLOGIC: Moves all 4 extremities ASSESSMENT: 1. Left L5/S1 MIS TLIF with ICBG PLAN: I ordered 15 days of Fentanyl patches (5 patches) and hopefully can taper off after that time. I also ordered 90 oxycodone 5 mg tabs, she can take 1-2 Q 4 hours PRN, MDD=6. And cyclobenzaprine 10 mg BID PRN. She can call me if she needs more medications after that time
--- NOTE | 2018-09-24 22:49 | PN ---
Progress Note - Progress Note Date of Service: 09/24/18 SOAP: Subjective: []Patient was seen earlier today. No events ON. Ambulates well. Preop LLE pain and numbness resolved. Mild incisional pain. Voids. No episodes of incontinence. Wants to go home. Objective: []VSS, Afebrile. Wound s,c,d AAOx3, DYLAN, CN II-XII grossly intact. Motor 5/5 all extremities Sensory grossly intact to light touch Assessment: []43 yof POD#2 Left L5-S1 MIS TLIF Plan: [] Monitor VS, Neurochecks Encourage ambulation. Pain control improved. Appreciate Dr Quinones's consult. DC planning, today. Full instructions were given. Nena Shoemaker MD
[2018-09-25] MEDS ORDERED: Scopolamine PATCH Remove* 1 NOTE MISC PATCH OFF ONE (10:50)
== END 2018-09-24 16:40 | disposition home or self-care (01) | DRG 304 ==
LOC: AA 06:02 → SSU 13:24
PROVIDERS: ADMIT Neurological Surgery; ATTEND Neurological Surgery
PROC: 0SG30AJ Fusion of Lumbosacral Joint with Interbody Fusion Device, Posterior Approach, Anterior Column, Open Approach (ICD-10-PCS; principal; 2018-09-22 07:30)
DX: M51.17 Intervertebral disc disorders with radiculopathy, lumbosacral region (principal); M47.12 Other spondylosis with myelopathy, cervical region; M47.896 Other spondylosis, lumbar region; F90.9 Attention-deficit hyperactivity disorder, unspecified type; K20.0 Eosinophilic esophagitis; F41.9 Anxiety disorder, unspecified; F32.9 Major depressive disorder, single episode, unspecified; E04.9 Nontoxic goiter, unspecified; Z82.49 Family history of ischemic heart disease and other diseases of the circulatory system; Z88.6 Allergy status to analgesic agent; Z83.3 Family history of diabetes mellitus; H93.19 Tinnitus, unspecified ear; I95.9 Hypotension, unspecified; R42 Dizziness and giddiness
CPT/HCPCS: 36415; 72100; 76000; 81003; 81015; 84443; 87086; A9270-GY; J0690; J1100; J1170; J2001; J2250; J2270; J2405; J2704; J3010

== ENCOUNTER 2018-09-26 20:52 | Emergency (ER) | payer BC, OTHER ==
--- NOTE | 2018-09-26 21:15 | ED ---
Lower Extremity - HPI Summary HPI Summary: A 43 y/o F presents to ED s/p lumbar fusion with Dr. Crooks, neurosurgery on 09/22/18 with c/o LLE cramping in calf onset today. Pt was released on from hospital. Pt states she was feeling OK after the surgery up until today. Associated sx: brusing along glutes and lower back; R-sided calf cramping but not as painful as left; numbness in glutes. - History of Current Complaint Chief Complaint: EDExtremityLower Stated Complaint: LT CALF CRAMPS Time Seen by Provider: 09/26/18 21:12 Hx Obtained From: Patient Onset/Duration: Days - onset today Severity Initially: Moderate Severity Currently: Severe Pain Intensity: 8 Pain Scale Used: 0-10 Numeric Timing: Constant Location: Is Discrete @ - L calf Associated Signs And Symptoms: Positive: Bruising - to glutes, Other - pos: numbness to glutes; R calf cramping - Allergies/Home Medications Allergies/Adverse Reactions: Allergies Allergy/AdvReac Type Severity Reaction Status Date / Time No Known Allergies Allergy Verified 09/26/18 20:58 PMH/Surg Hx/FS Hx/Imm Hx Previously Healthy: No Endocrine/Hematology History: Denies: Hx Diabetes, Hx Sickle Cell Disease, Hx Anemia Cardiovascular History: Reports: Hx Angina Denies: Hx Coronary Artery Disease, Hx Hypercholesterolemia, Hx Hypertension , Hx Myocardial Infarction, Hx Pacemaker/ICD, Hx Valvular Heart Disease, Other Cardiovascular Problems/Disorders Respiratory History: Reports: Hx Asthma Denies: Other Respiratory Problems/Disorders GI History: Denies: Hx Jaundice, Other GI Disorders History: Reports: Other Problems/Disorders - Frequent urination Denies: Hx Renal Disease Musculoskeletal History: Reports: Other Musculoskeletal History - Degenerative disc disease/Scoliosis Denies: Hx Arthritis, Hx Bursitis, Hx Tendonitis Sensory History: Denies: Hx Contacts or Glasses, Hx Hearing Aid Opthamlomology History: Denies: Hx Contacts or Glasses Neurological History: Reports: Hx Headaches - mild Psychiatric History: Reports: Hx Anxiety Denies: Hx Eating Disorder, Hx Panic Disorder, Hx of Violent Episodes Against Others, Other Psychiatric Issues/Disorders - Surgical History Surgery Procedure, Year, and Place: x2;. CSP FUSION Aug - NO EXTERNAL NANDINI; Hx Anesthesia Reactions: No Infectious Disease History: No Infectious Disease History: Denies: History Other Infectious Disease, Traveled Outside the [place] in Last 30 Days - Family History Known Family History: Positive: Cardiac Disease, Diabetes, Other - brain aneurysm, cancer - Social History Occupation: Employed Full-time Lives: Alone Alcohol Use: Occasionally Alcohol Amount: 1-2 glasses per month Hx Substance Use: No Substance Use Type: Reports: None, Marijuana Substance Use Comment - Amount & Last Used: occasionally-only this week to sleep after grandmothers Hx Tobacco Use: No Smoking Status (MU): Former Smoker Type: Cigarettes Amount Used/How Often: 2 cigs per day for a few years Have You Smoked in the Last Year: No Review of Systems Negative: Fever Musculoskeletal: Other - pos: severe L calf cramping/pain; mild R calf cramping/ jena Positive: Bruising - glutes Neurological: Other - pos: numbness in glutes All Other Systems Reviewed And Are Negative: Yes Physical Exam - Summary Physical Exam Summary: Appearance: Well-appearing, Well-nourished, lying in bed comfortably Skin: Warm, dry, no obvious rash. Ecchymosis over lower back and buttocks consistent with surgery. Incisions are healing very well and show no sign of infection Eyes: sclera anicteric, no conjunctival pallor ENT: mucous membranes moist, pharynx appears normal Neck: Supple, nontender Respiratory: Clear to auscultation, no signs of respiratory distress Cardiovascular: Normal S1, S2. No murmurs. Normal distal pulses in tibial and radial bilaterally. Abdomen: Soft, nontender, normal active bowel sounds present Musculoskeletal: No visible swelling of either calf; good strength at hip, knees , ankles; deep tendon reflexes at ankles and knees are normal and symmetric. Neurological: A&Ox3, awake and alert, mentation is normal, speech is fluent and appropriate Psychiatric: affect is normal, does not appear anxious or depressed Triage Information Reviewed: Yes Vital Signs On Initial Exam: Initial Vitals Temp Pulse Resp BP Pulse Ox 99.4 F 107 18 125/80 99 09/26/18 20:54 09/26/18 20:54 09/26/18 20:54 09/26/18 20:54 09/26/18 20:54 Vital Signs Reviewed: Yes Diagnostics - Vital Signs Vital Signs Temp Pulse Resp BP Pulse Ox 09/26/18 20:54 99.4 F 107 18 125/80 99 - Laboratory Lab Statement: Any lab studies that have been ordered have been reviewed, and results considered in the medical decision making process. - Ultrasound No standard instances Summary of Ultrasound Findings: LLE U/S pending official report, see [employer]. Lower Extremity Course/Dx - Course Course Of Treatment: Pt is a 43 y/o F s/p lumbar fusion with Dr. Crooks, neurosurgery on 09/22/18 presenting with c/o LLE cramping in calf onset today. Pt states she was feeling OK after the surgery up until today. Associated sx: brusing along glutes and lower back; R-sided calf cramping but not as painful as left; numbness in glutes. - Diagnoses Provider Diagnoses: Postoperative back pain Discharge - Sign-Out/Discharge Documenting (check all that apply): Patient Departure - D/C - Discharge Plan Condition: Good Disposition: HOME Patient Education Materials: Lumbar Spinal Fusion (DC) Referrals: Radha Shoemaker MD [Medical Doctor] - - Billing Disposition and Condition Condition: GOOD Disposition: Home - Attestation Statements Document Initiated by Scribe: Yes Documenting Scribe: Nick Keith Provider For Whom Scribe is Documenting (Include Credential): Dr. Clay Samuels MD Scribe Attestation: Nick Eden scribed for Dr. Clay Samuels MD on 10/01/18 at 1849. Scribe Documentation Reviewed: Yes Provider Attestation: The documentation as recorded by the Nick muñoz accurately reflects the service I personally performed and the decisions made by , Dr. Clay Samuels MD Status of Scribe Document: Viewed
[2018-09-26 23:23] VITALS: BP 00/00
== END 2018-09-26 23:22 | disposition home or self-care (01) ==
LOC: ED 20:52
DX: G89.18 Other acute postprocedural pain (principal); S80.12XA Contusion of left lower leg, initial encounter; R25.2 Cramp and spasm; M54.5 Low back pain; Z87.891 Personal history of nicotine dependence; X58.XXXA Exposure to other specified factors, initial encounter; Y92.9 Unspecified place or not applicable
CPT/HCPCS: 99282

== ENCOUNTER 2018-11-15 19:07 | Emergency (ER) | payer BC, OTHER ==
--- OUTSIDE RECORDS SUMMARY | 2018-11-15 19:40 | XMS REPORT | Continuity of Care Document ---
:1975 External Reference #:[id number] Author Name Terese Pappas Care Team Providers Name Role Phone Yuriy Rose MD Primary Care Physician Unavailable Payers Type Date Identification Numbers Payment Provider Subscriber Effective: Policy Number: MONISHA Angelique Elliott 2017 [id number] Deyanira PayID: [id number] [address] [address] K[place] [phone] Effective: 2018 Policy Number: [facility] Lexi Patterson [id number] Expires: 2019 Group Number: 50% [id number] [facility] PayID: [id number] [address] [place] [address] Expires: 2017 PayID: [id number] Angelique Mcmillan [address] [address] K[place] [phone] Effective: 2016 Policy Number: [facility] Lexi Patterson [id number] Expires: 2018 Group Number: 50% [id number] PayID: [id number] [address] [place] [address] Advance Directives Description No Information Available Problems Date Description Provider Status Onset: 03/28/2015 Chronic meningitis Jayden Strauss M.D. Active Onset: 04/19/2015 Skin sensation disturbance Anastasia Dillon M.D. Active Onset: 04/19/2015 Memory impairment Anastasia Dillon M.D. 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 Onset: 06/23/2018 Cervical spondylosis Radha Shoemaker MD Active Onset: 06/23/2018 Cervical kyphosis Radha Shoemaker MD Active Onset: 09/13/2018 Lumbar spondylosis Radha Shoemaker MD Active Onset: 09/13/2018 Lumbago-sciatica due to Radha Shoemaker MD Active displacement of lumbar intervertebral disc Family History Date Family Member(s) Problem(s) Comments General Diabetes General Heart Disease Mother Neck Surgery Social History Type Date Description Comments Sex Unknown Marital Status Lives With Daughter Occupation Currently Working Occupation manager transportationmailroom manager office Work Status Currently Working ETOH Use Occasionally consumes alcohol Tobacco Use Start: Unknown Patient has never smoked Recreational Drug Use Denies Drug Use Smoking Status Reviewed: 10/18/18 Patient has never smoked Exercise Type/Frequency Exercises regularly Allergies, Adverse Reactions, Alerts Date Description Reaction Status Severity Comments 03/28/2015 Percocet itchy Active Medications Medication Date Status Form Strength Qnty SIG Indications Ordering Provider Zolpidem 04/19/ Active Tablets 2.5mg 30tabs 1 by mouth Anastasia Garza Tartrate 2014 tablet at [facility], bedtime as M.D. needed Valtrex 04/19/ Active Tablets 500mg 30tabs 1 by mouth Anastasia Arriaga every day Fab Dillon Triamcinolone / Active [...] Active Capsules one every Unknown 0000 day Fentanyl / Active Patches 25mcg/HR Apply 1 Unknown 0000 72HR Patch To The Skin Every 3 Days (72 Hours), DO Not Exceed 1 Patch Every 3 Days Gabapentin / Hx Capsules 400mg prn Unknown 0000 Wellbutrin SR / Hx Tablets ER 150mg 1 by mouth Unknown 0000 12HR once a day Hydrocodone / Hx Tablets 5-325mg 1 by mouth Unknown Bitartrate/Acet 0000 - three times aminophen 10/11/ a day as 2019 needed Immunizations Description No Information Available Vital Signs Date Vital Result Comment 10/18/2018 2:46pm Height 62 inches 5'2" Weight 153.50 lb Heart Rate 86 /min BP Systolic Sitting 128 mmHg BP Diastolic Sitting 80 mmHg Respiratory Rate 14 /min Body Temperature 98.4 F BMI (Body Mass Index) 28.1 kg/m2 10/11/2018 4:12pm Height 62 inches 5'2" Weight 147.00 lb BP Systolic Sitting 118 mmHg BP Diastolic Sitting 70 mmHg Body Temperature 98.0 F Pain Level 6 BMI (Body Mass Index) 26.9 kg/m2 09/13/2018 4:17pm Height 62 inches 5'2" Weight 147.00 lb BP Systolic Sitting 122 mmHg BP Diastolic Sitting 70 mmHg Pain Level 6 BMI (Body Mass Index) 26.9 kg/m2 09/07/2018 4:21pm Height 62 inches 5'2" Weight [...] Test Result H/L Range Note Urinalysis Profile 09/20/2018 [facility] Urine Color Yellow [address] [place] [address] [phone] Urine Appearance Clear Urine Specific [place] 1.015 N 1.010-1.030 Urine pH 5.0 N 5-9 Urine Urobilinogen Negative Negative Urine Ketones Negative Negative Urine Protein Negative Negative Urine Leukocytes Negative Negative Urine Blood Negative Negative Urine Nitrite Negative Negative Urine Bilirubin Negative Negative Urine Glucose Negative Negative Basic Metabolic Panel 09/20/2018 [facility] Sodium 137 mmol/L N 135-[address] [place] [address] [phone] Potassium 3.8 mmol/L N 3.5-5.0 Chloride 104 mmol/L N 101-111 Co2 Carbon Dioxide 27 mmol/L N 22-32 Anion Gap 6 mmol/L N 2-11 Glucose 91 mg/dL N 70-100 Blood Urea Nitrogen 10 mg/dL N 6-24 Creatinine 0.78 mg/dL N 0.51-0.95 BUN/Creatinine Ratio 12.8 N 8-20 Calcium 9.0 mg/dL N 8.6-10.3 Egfr Non- 80.6 >60 Egfr 97.5 >60 1 Laboratory test 09/20/2018 [facility] HCG < 0.60 mIU/ mL [address] [place] [address] [phone] Inr/Protime 09/20/2018 [facility] Inr 0.85 N 0.77- [address] 1[address]02 [place] [address] [phone] Laboratory test 09/20/2018 [facility] Partial Thrombo 31.4 seconds N 26.0- finding [address] Time PTT 36.3 [place] [address] [phone] Type & Screen 09/20/2018 [facility] Patient Blood O Positive [address] [place] [address] [phone] Antibody Screen NEGATIVE Basic Metabolic Panel 08/13/2018 [facility] Sodium 138 mmol/L N 135-[address] [place], [place] [address] [phone] Potassium 4.3 mmol/L N 3.5-5.0 Chloride 104 mmol/L N 101-111 Co2 Carbon Dioxide 29 mmol/L N 22-32 Anion Gap 5 mmol/L N 2-11 Glucose 92 mg/dL N 70-100 Blood Urea Nitrogen 12 mg/dL N 6-24 Creatinine 0.85 mg/dL N 0.51-0.95 BUN/Creatinine Ratio 14.1 N 8-20 Calcium 9.2 mg/dL N 8.6-10.3 Egfr Non- 73.0 >60 Egfr 88.3 >60 3 Type & Screen 08/13/2018 [facility] Patient Blood Type O Positive [address] [place], [place] [id number] [phone] Antibody Screen NEGATIVE Laboratory test 08/13/2018 [facility] Partial 32.0 seconds N 26.0-36.[address] [place] [address] PTT [phone] Inr/Protime 08/13/2018 [facility] Inr 0.87 N 0.77-1.[address] [place], [place] [id number] [phone] CBC No Diff 08/13/2018 [facility] White Blood 5.4 10^3/uL N 3.5-10.8 [place] [address] [phone] Red Blood Count 4.48 10^6/uL N 4.00-5.40 Hemoglobin 14.0 g/dL N 12.0-16.0 Hematocrit 42 % N 35-47 Mean Corpuscular Volume 93 fL N 80-97 Mean Corpuscular Hemoglobin 31 pg N 27-31 Mean Corpuscular HGB Conc 34 g/dL N 31-36 Red Cell Distribution Width 14 % N 10.5-15 Platelet Count 281 10^3/uL N 150-450 Mean Platelet Volume 8.3 fL N 7.4-10.4 Urinalysis Profile 08/13/2018 [facility] Urine [place] [address] [phone] Urine Appearance Cloudy Urine Specific [place] 1.017 N 1.010-1.030 Urine pH 7.0 N 5-9 Urine Urobilinogen Negative Negative Urine Ketones Negative Negative Urine Protein Negative Negative Urine Leukocytes Negative Negative Urine Blood Negative Negative Urine Nitrite Negative Negative Urine Bilirubin Negative Negative Urine Glucose Negative Negative CSF Immunoglobulin 08/03/2018 [facility] CSF Immunoglobulin 0.54 <=0.85 G (Igg) [facility] [place] [place] [address] [phone] CSF Igg 1.3 mg/dL <=8.1 4 CSF Albumin 9.7 mg/dL <=27.0 5 CSF IgG/Albumin Ratio 0.13 <=0.21 CSF Immunoglobulin G Synthesis 0.00 mg/24h <=12 Immunoglobulin G 911 mg/dL 767 - 1590 Albumin 3860 mg/dL 6 Serum IgG/Albumin Ratio 0.24 <=0.40 7 CSF Culture & 08/03/2018 [facility] CSF Culture SEE RESULT 8 Sensitivity [facility] [place] [address] [phone] Laboratory test 08/03/2018 [facility] CSF Protein 24 mg/dL N 15-[address] [place] [address] [phone] CSF Glucose 55 mg/dL N 40-70 CSF Cell Count 08/03/2018 [facility] Body Fluid Cerebral Spinal [address] [place] [address] [phone] Body Fluid Appearance Clear Body Fluid Color Colorless CSF Tube # 4 Body Fluid Volume 2.2 mL Body Fluid WBC 0 /mcL Body Fluid RBC 0 /mcL Body Fluid Neutrophils 13 % Body Fluid Band 6 % Body Fluid Lymph 75 % Body Fluid Mower 6 % Body Fluid Total Cells Counted 32 Fluid Reviewed By MD (SEE NOTE) 9 Herpes Simplex 08/03/2018 [facility] HSV 1 PCR, Negative Negative Virus PCR CSF [address] [facility] [place] [address] [phone] HSV 2 PCR, CSF Negative Negative 10 Laboratory test 07/30/2018 [facility] Angiotensin 34 U/L 8 - [address] [place] [address] [phone] CRP High Sensitivity < 0.20 mg/L <2.00 Immunoglobulin A (Iga) 250 mg/dL 61 - 356 12 Ssa/SSB Abs Igg 07/30/2018 [facility] SS-A/Ro Antibody <0.2 U [address] [place] [address] [phone] SS-B/La Antibody <0.2 U 14 Xray 07/15/2018 [facility] MRI Brain W/O <pending> [address] [place] [address] [phone] SP Cerv Comp/Obl, Flex, Ext <pending> Order 04/14/2018 [facility] MMR Injection <pending> [address] [place] [address] [phone] Varicella Zoster 04/08/2018 [facility] Varicella-Zoster Positive 15 Igg AB [address] [place] [address] [phone] Varicella IgG Antibody Index 1.6 16 Rubeola Measles 04/08/2018 [facility] Rubeola (Measles) Negative 17 Igg AB [address] [place] [address] [phone] Rubeola IgG Antibody Index 0.7 18 Mumps Igg 04/08/2018 [facility] Mumps Virus IgG Antibody Positive [address] [place] [address] [phone] Mumps IgG Antibody Index 3.8 20 Laboratory test 04/08/2018 [facility] Rubella Screen Immune Immune finding [address] [place] [address] [phone] Laboratory test 04/19/2015 [facility] C Reactive < 1.00 mg/L N < 5.[address] [place] [address] [phone] TSH (Thyroid Stim Horm) 1.18 ?IU/mL N 0.34-5.60 Free T4 (Free Thyroxine) 0.82 ng/mL N 0.61-1.12 Folic Acid (Folate) > 20.00 ng/mL N >3.99 Vitamin B12 363 pg/mL N 180-914 22 Dionna (Antinuclear Antibodies) Negative N Negative Laboratory test 03/28/2015 [facility] Lyme Disease Negative N Negative [address] [place] [address] [phone] 1 Because ethnic data is not always [...] 5 Kidney failure <15 (or dialysis) 2 <5.0 Negative 5.0 - 25.0 Indeterminate (Repeat testing recommended after 72 hours) >25.0 Positive Perimenopausal women can display HCG levels of up to 20 mIU/mL 3 Because ethnic data is not always readily [...] 15-29 5 Kidney failure <15 (or dialysis) 4 ADDITIONAL INFORMATION This test has been modified from the micropaleontologist's instructions. Its performance characteristics were determined by [facility] in a manner consistent with CLIA requirements. This test has not been cleared or approved by the U.S. Food and Drug Administration. 5 ADDITIONAL INFORMATION This test has been modified from the micropaleontologist's instructions. Its performance characteristics were determined by [facility] in a manner consistent with CLIA requirements. This test has not been cleared or approved by the U.S. Food and Drug Administration. 6 REFERENCE VALUE 3200 - 8720 7 Test Performed by: [address] [address] 8 SEE RESULT BELOW Name: LEXI MCCURDY : [address]: Ashley Reynaga III, MD Acct: [id number] Unit: [id number] AGE: 43 Location: OR Re08/03/18 SEX: F Status: REG [facility] SPEC: [id number] RODNEY: 08/03/18-[address] [facility] [address]: Fabrice Velez MD REQ: [id number] RECD: 08/03/18 STATUS: COMP OTHR DR: Yuriy Reynaga III, MD _ SOURCE: CSF SPDESC: ORDERED: CSF Cult/GS Procedure Result Reported Site CSF Gram Stain Final 08/03/18- 1559 ML 1+ Epithelial Cells No Neutrophils Observed No Organisms Seen Preparation By Cytospin Smear CSF Culture Final 08/07/18- 0839 ML No Growth Day 4 * ML - Main Lab . END OF REPORT DEPARTMENT OF PATHOLOGY, [address] [place] [address] Gurmeet Guzman M.D. Director [facility] # [id number] No acute inflammation or evidence of malignancy identified. No microorganisms seen. Reviewed by Dr. Guzman 10 Test Performed by: [facility] [address] [id number] 11 Test Performed by: [facility] [address] [id number] 12 Test Performed by: [address] [address] [place] [address] 13 REFERENCE VALUE <1.0 (Negative) 14 REFERENCE VALUE <1.0 (Negative) Test Performed by: [facility] [address] [place] [address] 15 Results suggest response to immunization or prior exposure to the virus. REFERENCE VALUE Vaccinated: Positive (>=1.1 AI) Unvaccinated: Negative (<=0.8 AI) 16 Test Performed by: [facility] [place] [address] 17 REFERENCE VALUE Vaccinated: Positive (>=1.1 AI) Unvaccinated: Negative (<=0.8 AI) 18 Test Performed by: [facility] [place] [address] 19 Results suggest response to immunization or prior exposure to the virus. REFERENCE VALUE Vaccinated: Positive (>=1.1 AI) Unvaccinated: Negative (<=0.8 AI) 20 Test Performed by: [facility] [address] [place] [address] 21 Acute inflammation: >10.00 22 Normal Range 180 to 914 Indeterminate Range 145 to 180 Deficient Range <145 23 Serologic response to B. burgdorferi infection is not detected, but cannot rule out early infection during which low or undetectable antibody levels to B. burgdorferi may be present. If clinically indicated, a new serum specimen should be submitted in 7-14 days. Test Performed by: [address] [address] Resident Assistant: Tremaine Nino II, M.D., Ph.D. Procedures Date Code Description Status 09/22/2018 53135 Stereotactic Computer-Assisted, Spinal Completed 09/22/2018 37810 Insertion Interbody Biomechanical Device; Each Interspace Completed 09/22/201830021 Non-Segmental Instrumentation Posterior 1 Interspace Completed 09/22/201817021 Arthrodesis,Combined Posterior Or Posterolateral Tech Completed 09/22/201811843 Autograft For Spine Surgery, Morselized Completed 09/22/201860953 Allograft For Spine Surgery, Morselized Completed 08/19/201836340 Allograft For Spine Surgery, Morselized Completed 08/19/201821574 Autograft For Spine Surgery (Incls Harvesting The Graft) Completed 08/19/2018 79119 arthrodesis,anterior interbody incl disc space Completed prep,discectomy,de 08/19/2018 93091 arthrodesis,anterior interbody incl disc space Completed prep,discectomy,de 08/19/2018 01856 additional level cervical below C2 Completed 08/19/2018 68683 additional level cervical below C2 Completed 08/19/2018 48546 Anterior Instrumentation 2-3 Vertebral Segments Completed 08/19/2018 85048 Anterior Instrumentation 2-3 Vertebral Segments Completed 08/19/2018 72000 Insertion Interbody Biomechanical Device; Each Interspace Completed 08/19/2018 54025 Insertion Interbody Biomechanical Device; Each Interspace Completed 08/13/2018 39872 EKG, Interpretation Only Completed 08/06/2018 99428 Nerve Conduction 07-08 Studies Completed 08/06/2018 95655 Needle Electromyography Each Extremity W/Related Completed Paraspinal Areas 04/10/2017 02808 Treadmill Interp/Report Only Completed 04/10/2017 33343 Stress Test Supervsn W/Out I/R Completed Encounters Type Date Location Provider Dx Diagnosis Office Visit 09/23/2018 [facility] Sammie Parker, R42 Dizziness and 10:06a Assoc,pc Hospitalists DO giddlc M51.17 Intvrt disc disorders w radiculopathy, lumbosacral region Office Visit 09/13/2018 [facility] M47.12 Other 4:15p Services Of Clint Shoemaker MD spondylosis with myelopathy, cervical region M47.896 Other spondylosis, lumbar region M51.17 Intvrt disc disorders w radiculopathy, lumbosacral region Office Visit 09/07/2018 4:15p [facility] Fabrice Velez, R53.1 Weakness Services Of Clint Sanon R20.0 Anesthesia of skin Office Visit 08/31/2018 11:00p [facility] M54.5 Low back Services Of [facility] Shoemaker MD pain R32 Unspecified urinary incontinence M51.37 Other intervertebral disc degeneration, lumbosacral region Office 07/30/2018 Neurohospitalist Fabrice Sampson M47.892 Other Visit 8:15a Clinic Fab Velez spondylosis, cervical region R20.0 Anesthesia [...] kyphosis, cervical region Office Visit 04/09/2017 9:28a [facility] Renay R07.2 Precordial pain Assoc,kathy Trevizo M.D. Hospitalists Office Visit 02/23/2017 9:30a [facility] Danny Mcintyrezer, L21.8 Other seborrheic MD dermatitis D22.39 Melanocytic nevi of other parts of face D23.71 Ot benign neoplasm skin/ right lower limb, including hip D22.5 Melanocytic nevi of trunk L23.9 Allergic contact dermatitis, unspecified cause L70.0 Acne vulgaris Office Visit 04/19/2015 10:00a [facility] Anastasia Garza 782.0 Skin Sensation [facility] Dillon M.D. Disturbance 780.93 Memory Loss Office Visit 03/28/2015 2:00p Neurosurgery Jayden J. 322.2 Meningitis Services Of [facility] Strauss M.D. Chronic 781.6 Meningismus Plan of Treatment 10/11/2018 - PEYMAN Zuniga48.89 Encounter for other specified surgical aftercareFollow up:Rv in 1 kkqzzY22.12 Other spondylosis with myelopathy, cervical regionNew Xrays:SP Lumbar Ap//Lat 2-3 Views, Ordered: 10/11SP Cerv Comp/Obl, Flex, Ext, Ordered: 10/11/18M51.17 Intvrt disc disorders w radiculopathy, lumbosacral region
--- NOTE | 2018-11-15 23:20 | ED ---
Back Pain - HPI Summary HPI Summary: 43-year-old female presents with back and neck pain today. She slipped and twisted her back. She admits to numbness and tingling of her left leg. States that this had been resolved after the surgery. States she has a history of a cervical fusion and lumbar fusion. this was done by dr anguiano who told her to come to ER for imaging. She states her pain is a 5 out of 10. She denies any loss of bowel or bladder or saddle anesthesia. No fever. She does not want anything for pain and hasn't taking anything for pain. pain in neck radiates to left shoulder. - History of Current Complaint Chief Complaint: EDBackInjuryPain Stated Complaint: FALL, BACK PAIN Time Seen by Provider: 11/15/18 21:23 Pain Intensity: 6 - Allergies/Home Medications Allergies/Adverse Reactions: Allergies Allergy/AdvReac Type Severity Reaction Status Date / Time No Known Allergies Allergy Verified 11/15/18 19:33 PMH/Surg Hx/FS Hx/Imm Hx Endocrine/Hematology History: Denies: Hx Diabetes, Hx Sickle Cell Disease, Hx Anemia Cardiovascular History: Reports: Hx Angina Denies: Hx Coronary Artery Disease, Hx Hypercholesterolemia, Hx Hypertension , Hx Myocardial Infarction, Hx Pacemaker/ICD, Hx Valvular Heart Disease, Other Cardiovascular Problems/Disorders Respiratory History: Reports: Hx Asthma Denies: Other Respiratory Problems/Disorders GI History: Denies: Hx Jaundice, Other GI Disorders History: Reports: Other Problems/Disorders - Frequent urination Denies: Hx Renal Disease Musculoskeletal History: Reports: Other Musculoskeletal History - Degenerative disc disease/Scoliosis Denies: Hx Arthritis, Hx Bursitis, Hx Tendonitis Sensory History: Denies: Hx Contacts or Glasses, Hx Hearing Aid Opthamlomology History: Denies: Hx Contacts or Glasses Neurological History: Reports: Hx Headaches - mild Psychiatric History: Reports: Hx Anxiety Denies: Hx Eating Disorder, Hx Panic Disorder, Hx of Violent Episodes Against Others, Other Psychiatric Issues/Disorders - Surgical History Surgery Procedure, Year, and Place: x2;. CSP FUSION Aug - NO EXTERNAL NANDINI; Hx Anesthesia Reactions: No Infectious Disease History: No Infectious Disease History: Denies: History Other Infectious Disease, Traveled Outside the [place] in Last 30 Days - Family History Known Family History: Positive: Cardiac Disease, Diabetes, Other - brain aneurysm, cancer - Social History Alcohol Use: Weekly Alcohol Amount: 2-3 glasses Hx Substance Use: No Substance Use Type: Reports: None Substance Use Comment - Amount & Last Used: occasionally-only this week to sleep after grandmothers Hx Tobacco Use: No Smoking Status (MU): Never Smoked Tobacco Type: Cigarettes Amount Used/How Often: 2 cigs per day for a few years Have You Smoked in the Last Year: No Review of Systems Negative: Fever Negative: Chest Pain Negative: Shortness Of Breath Positive: Myalgia - back and neck pain All Other Systems Reviewed And Are Negative: Yes Physical Exam Triage Information Reviewed: Yes Vital Signs On Initial Exam: Initial Vitals Temp Pulse Resp BP Pulse Ox 98.9 F 88 16 127/91 99 11/15/18 19:25 11/15/18 19:25 11/15/18 19:25 11/15/18 19:25 11/15/18 19:25 Vital Signs Reviewed: Yes Appearance: Positive: Well-Appearing Skin: Positive: Warm, Dry Head/Face: Positive: Normal Head/Face Inspection Eyes: Positive: Normal, EOMI, DYLAN, Conjunctiva Clear ENT: Positive: Normal ENT inspection, Pharynx normal, TMs normal Respiratory/Lung Sounds: Positive: Clear to Auscultation, Breath Sounds Present Cardiovascular: Positive: Normal, RRR Abdomen Description: Positive: Nontender, Soft Bowel Sounds: Positive: Present Musculoskeletal: Positive: Strength/ROM Intact - neck and back, Other - neg SLR , good pulses, sensation grossly intact. tenderness lower back and right side of neck, good asset management analyst strength Neurological: Positive: Normal Gait, Babinski Bilateral - normal Psychiatric: Positive: Normal Diagnostics - Vital Signs Vital Signs Temp Pulse Resp BP Pulse Ox 11/15/18 22:00 90 98 11/15/18 21:46 88 116/80 98 11/15/18 21:16 92 108/84 99 11/15/18 19:25 98.9 F 88 16 127/91 99 - Laboratory Lab Statement: Any lab studies that have been ordered have been reviewed, and results considered in the medical decision making process. - Radiology shoulder Radiology Interpretation Completed By: ED Physician Summary of Radiographic Findings: no fracture lumbar Radiology Interpretation Completed By: ED Physician Summary of Radiographic Findings: no fracture - CT lumbar CT Interpretation Completed By: Radiologist Summary of CT Findings: IMPRESSION: No acute finding. cervical CT Interpretation Completed By: Radiologist Summary of CT Findings: IMPRESSION: No acute finding. Back Pain Course/Dx - Course Course Of Treatment: 43-year-old female presents with back and neck pain today. She slipped and twisted her back. She admits to numbness and tingling of her left leg. States that this had been resolved after the surgery. States she has a history of a cervical fusion and lumbar fusion. this was done by dr anguiano who told her to come to ER for imaging. She states her pain is a 5 out of 10. She denies any loss of bowel or bladder or saddle anesthesia. No fever. She does not want anything for pain and hasn't taking anything for pain. On exam tenderness of the cervical and lumbar back. Negative straight leg. Sensation grossly intact. Reflexes intact. CT cervical and lumbar shows no fracture. Told to follow up with neurosurgery if needed. Patient understands agrees with plan. - Diagnoses Differential Diagnosis/HQI/PQRI: Positive: Fracture, Herniated Disc, Strain Provider Diagnoses: Neck pain, Back pain Discharge - Sign-Out/Discharge Documenting (check all that apply): Patient Departure Patient Received Moderate/Deep Sedation with Procedure: No - Discharge Plan Condition: Good Disposition: HOME Patient Education Materials: Back Pain (ED) Referrals: Yuriy Rose MD [Primary Care Provider] - Additional Instructions: follow up with neurosurgery as needed ice/heat take normal pain medication Return to ED if develop any new or worsening symptoms - Billing Disposition and Condition Condition: GOOD Disposition: Home
[2018-11-16 00:07] VITALS: BP 120/76
== END 2018-11-16 00:11 | disposition home or self-care (01) ==
LOC: ED 19:07
DX: M54.9 Dorsalgia, unspecified (principal); M54.2 Cervicalgia
CPT/HCPCS: 72100; 72125; 72131; 99282

== ENCOUNTER 2022-07-17 11:11 | Observation (INO) ==
[~2022-07-17 11:11] MED LIST changes: -Buffered Lidocaine 0.9% SYRIN* 5 ML/SYR SYRINGE INTRADERM ONE; +Clindamycin 900 MG/50 **NS BAG 900 MG/50 ML BAG IV ONE; -Famotidine IV* 10 MG/ML 2 ML (20 mg) IV ONE; -Lactated Ringers 1000 ML Bag* 1,000 ML IV SCH; +Naloxone 0.4 mg VIAL 0.4 mg/ml 1 ml VIAL IV PUSH PRN
[2022-07-17] MEDS ORDERED: Scopolamine 1 mg/72hr PATCH ONE (11:18)
[2022-07-17] MEDS ORDERED: Ondansetron 4 mg VIAL 2 MG/ML 2 ml VIAL ONE ×2 (11:18→16:16)
[2022-07-17 11:59] LABS: ABS Basophils 0.1 10^3/ul (0-0.2); ABS Eosinophils 0.1 10^3/ul (0-0.6); ABS Lymphocytes 1.6 10^3/ul (1.0-4.8); ABS Monocytes 0.4 10^3/ul (0-0.8); ABS Neutrophils 3.1 10^3/ul (1.5-7.7); Eosinophil % 1.8 %; Hematocrit 39 % (35-47); Lymphocyte % 30.7 %; Mean Corpuscular HGB Conc 33 g/dL (31-36); Mean Corpuscular Hemoglobin 30 pg (27-31); Mean Corpuscular Volume 91 fL (80-97); Mean Platelet Volume 8.3 fL (7.4-10.4); Nucleated Red Blood Cells % 0.1; Platelet Count 281 10^3/uL (150-450); Red Cell Distribution Width 13 % (10-15); White Blood Count 5.3 10^3/uL (3.5-10.8)
[2022-07-17 12:09] LABS: Activated Partial Thrombo Time 30.7 seconds (26.0-38.0); INR 0.92 (0.89-1.11)
[2022-07-17 13:54] LABS: Calcium 8.8 mg/dL (8.6-10.3); HCG Pregnancy 0.34 mIU/mL; Potassium 3.8 mmol/L (3.5-5.0); eGFR CKD-EPI 108.4 (>60)
[2022-07-17] MEDS ORDERED: HYDROmorphone PCA 20 MG/20 ML PCA.SYRING PCA SCH (14:00)
[2022-07-17] MEDS ORDERED: Iohexol 350 (CONTRAST) 100 ML PAK IV ONE (15:44)
[2022-07-17] MEDS ORDERED: Lidocaine 1% VIAL 10 MG/ML VIAL ONE (15:44)
[2022-07-17] MEDS ORDERED: Heparin 2 UNITS/ML IVPREMIX 3,000 UNIT/1,500 ML BAG IV ONE (15:45)
[2022-07-17] MEDS ORDERED: Midazolam 5 mg/5 ml VIAL 1 mg/ml 5 ml VIAL (5 mg) ONE (15:58)
[2022-07-17] MEDS ORDERED: fentaNYL 100 mcg/2 ml 50 MCG/ML VIAL ONE ×2 (15:58→16:56)
[2022-07-17] MEDS ORDERED: nitroGLYCERIN DRIP 25,000 MCG/250 ML BTL ONE (16:09)
[2022-07-17] MEDS ORDERED: HYDROmorphone 0.5 MG/0.5 ML SYRINGE ONE ×2 (17:47→17:58)
[2022-07-17] MEDS ORDERED: Triamcinolone 0.5% OINT 1 TUBE TOPICAL PRN (21:25)
[2022-07-17] MEDS: Ondansetron 4 mg VIAL 2 MG/ML 2 ml VIAL IV SCH (21:59)
[2022-07-18] MEDS: Ondansetron 4 mg VIAL 2 MG/ML 2 ml VIAL IV SCH (02:59)
[2022-07-18] MEDS ORDERED: Cholestyramine Resin 4 GM POWDER PO SCH (08:30)
[2022-07-18] MEDS ORDERED: HYDROcodone/ACETAMIN 5/325 mg TAB PO ONE (08:37)
[2022-07-18] MEDS ORDERED: HYDROcodone/ACETAMIN 5/325 mg TAB PO PRN ×3 (08:37→15:00)
[2022-07-18] MEDS ORDERED: Ondansetron ODT 4 mg TAB 4 MG TAB SL ONE (08:43)
[2022-07-18] MEDS ORDERED: [UNRECOGNIZED DRUG - OTHER] TOPICAL SCH (09:00)
[2022-07-18] MEDS ORDERED: Amphetamine/Dextroam ER 10(NF) 10 mg CAP.ER PO SCH (09:00)
[2022-07-18] MEDS ORDERED: Multivitamins/Minerals TAB PO SCH (09:00)
[2022-07-18 11:25] VITALS: BP 128/81
[2022-07-18] MEDS ORDERED: Ketorolac 10 mg TAB (NF) PO SCH (15:00)
[2022-07-18] MEDS ORDERED: Amphetamine MIXED SALT 10mgTAB PO SCH (16:00)
== END 2022-07-18 17:15 | disposition home or self-care (01) ==
LOC: CHICATH 11:11 → INTOOBSV 21:04 → SSU 21:04
PROVIDERS: ADMIT Internal Medicine; ATTEND Radiology Diagnostic Radiology
PROC: ANG.UFE (2022-07-17 12:10)